=== PATIENT | female | born 1985 | race Caucasian/White ===

== ENCOUNTER 2017-10-06 08:30 | Inpatient (IN) | payer SELFPAY ==
[2017-10-06 10:08] LABS: Troponin I Less than 0.010 ng/mL (< 0.028)
[2017-10-06] MEDS ORDERED: Acetaminophen 325 MG TAB PO PRN (10:51)
[2017-10-06] MEDS ORDERED: Milk Of Magnesia 30 ML UDCUP PO PRN (10:51)
[2017-10-06] MEDS ORDERED: Chloraseptic Spray 180 ml Bottle PO PRN (10:51)
[2017-10-06] MEDS ORDERED: Loperamide HCl 2 MG CAP PO PRN (10:51)
[2017-10-06] MEDS ORDERED: Ondansetron ODT 4 MG TAB PO PRN (10:51)
[2017-10-06] MEDS ORDERED: Loratadine 10 MG TAB PO PRN (10:51)
[2017-10-06] MEDS ORDERED: Diabetic Tussin 200 MG/10 ML UDCUP PO PRN (10:51)
[2017-10-06] MEDS ORDERED: Eucerin (Mineral Oil/Petrolatum,White) 30 gm Jar TOP PRN (10:51)
[2017-10-06] MEDS ORDERED: Ondansetron HCl/PF 4 MG/2 ML Vial IVP PRN (10:51)
[2017-10-06] MEDS ORDERED: Zolpidem Tartrate 5 MG TAB PO PRN (10:51)
[2017-10-06] MEDS ORDERED: Artificial Tears 18 DROP/0.9 ML EA EYE PRN (10:51)
[2017-10-06] MEDS ORDERED: Senokot 8.6 MG TAB PO PRN (10:51)
[2017-10-06] MEDS ORDERED: Mag-Al 1200 mg/1200 mg/30 ML UDCUP PO PRN (10:51)
[2017-10-06] MEDS ORDERED: Sodium Chloride 0.65% Nasal 44 ML BOT EA NARE PRN (10:51)
--- NOTE | 2017-10-06 11:40 | HP ---
DATE OF ADMISSION: 10/06/2017 PRIMARY CARE PHYSICIAN: Lisa Salazar PA-C REASON FOR ADMISSION: Transfer from [facility] emergency room for bilateral pulmonary embolism. HISTORY OF PRESENT ILLNESS: A 32-year-old female who has chronic low back pain. She is taking oral contraceptive pills for contraception. She has a 2-week history of increasing shortness of breath, d ry cough, chest discomfort and pleuritic discomfort. Her chest pain is getting worse with deep breat dinesh. She gets dyspnea on exertion. She denies any palpitation, dizziness or syncope. She was give n recently antibiotic for upper respiratory infection without any clinical improvement. With these symptoms, she presented to [facility] where she had elevated D-dimer and that is why CT angio was done, which showed bilateral pulmonary embolism. The patient was given Lovenox 1 mg/kg and subsequently this patient was transferred to our hospital for further treatment. This patient denies any recent immobilization, travel. She denies any previous history of DVTs. She denies any pregnancies. She denies any fever or chills. She denies any hematochezia, melena. The patient reports that she has a history of stage II cervical cancer and a week ago, she had a cerv ical biopsy, but she does not know the result of that biopsy and based on that pathology report, her oncologist will decide treatment plan. REVIEW OF SYSTEMS: The following complete review of systems was negative, unless otherwise mentioned in the HPI or below: Constitutional: Weight loss or gain, ability to conduct usual activities. Sk in: Rash, itching. Eyes: Double vision, pain. ENT/Mouth: Nose bleeding, neck stiffness, pain, te nderness. Cardiovascular: Palpitations, dyspnea on exertion, orthopnea. Respiratory: Shortness of breath, wheezing, cough, hemoptysis, fever or night sweats. Gastrointestinal: Poor appetite, abdom inal pain, heartburn, nausea, vomiting, constipation or diarrhea. Genitourinary: Urgency, frequency , dysuria, nocturia. Musculoskeletal: Pain, swelling. Neurologic/Psychiatric: Anxiety, depression . Allergy/Immunologic: Skin rash, bleeding tendency. Please see my HPI for pertinent positive and negative. All other review of system reviewed and negat laura except as mentioned in the HPI. PAST MEDICAL HISTORY: Chronic low back pain, osteoarthritis, hypertension, history of cervical cance r. PAST SURGICAL HISTORY: The patient had x1 because of eclampsia. CORPORATE ACCOUNTANT HISTORY: G3, P3. PAST PSYCHIATRIC HISTORY: Anxiety and depression. SOCIAL HISTORY: The patient is . She drinks alcohol socially. She smokes about 1 pack per d ay. She is working as a computer technology trainer. She denies any other illicit drug abuse. FAMILY HISTORY: No family history of blood clot disorder. No family history of coronary artery dise ase, stroke or cancer. ALLERGIES: No known drug allergy. CURRENT HOME MEDICATIONS: Celexa 10 mg daily, Flexeril 10 mg t.i.d. p.r.n., ibuprofen 400 mg q.8 kim rly p.r.n., Soma 350 mg 3 times daily, Keflex 500 mg 4 times daily, which she finished, tramadol 50 m g q.8 hourly p.r.n., diclofenac 75 mg twice daily p.r.n., Tessalon 100 mg q.8 hourly p.r.n. for cough . EMERGENCY ROOM COURSE: At [facility], the patient was given morphine 2 mg, Lovenox 65 m g, albuterol inhalers, Solu-Medrol 125 mg, DuoNeb and aspirin 324 mg. PHYSICAL EXAMINATION: VITAL SIGNS: On arrival, blood pressure 134/81, pulse 102 and regular, respiratory rate 20, temperat ure 98.4, saturation 98% on room air, weight 65.7 kilograms. GENERAL: The patient is currently alert, awake, in no obvious acute distress. HEENT: Normocephalic, atraumatic. Eyes: Pupils round, reactive to light. Extraocular muscle intac t. ENT: Oropharynx within normal limits. Moist mucous membranes. No oral lesion, no pharyngeal erythe ma, no exudate. NECK: Supple, no JVD, no thyromegaly, no carotid bruit, no jugular venous distention. LUNGS: Clear to auscultation without any rhonchi or rales. CARDIAC: S1, S2 regular, tachycardia. No murmur, no gallop, no rub. ABDOMEN: Soft, bowel sounds present, nontender, nondistended. No organomegaly, no mass, no suprapub ic tenderness. BACK: Unremarkable. No CVA tenderness. EXTREMITIES: Upper extremities, passive movement of all joints are normal. Lower extremities, no ed jaky. Good distal pulsation. No calf tenderness. SKIN: No skin rash. HEMATOLOGICAL: No lymphadenopathy. PSYCHIATRIC: Normal affect. NEUROLOGIC: The patient is alert and oriented x3. Cranial nerves II-XII intact. Motor and sensatio n within normal limits. No focal neurological deficit. SIGNIFICANT LABORATORY DATA: Chest x-ray reported as normal without any acute process. CT angiograp hy showing bilateral subsegmental pulmonary embolism. CBC, WBC 15.3, hemoglobin 13.6, platelet 202,0 00 with left shift. D-dimer 3.75. BMP, sodium 138, potassium 4.0, chloride 103, carbon dioxide 24, anion gap 15, BUN 9, creatinine 0.71, glucose 125, calcium 9.4. LFT, AST 10, ALT 14, alkaline phosph atase 70, albumin 4.1. Cardiac enzymes negative. BNP less than 10. ASSESSMENT AND PLAN: 1. Bilateral pulmonary embolism. We will obtain ultrasound of bilateral lower extremity to rule out deep vein thrombosis. The patient is given Lovenox 1 mg/kg at [facility]. In our hosp ital, we will continue with Lovenox 1 mg/kg subcutaneously twice daily. We will send hypercoagulable workup. Most likely, the patient's use of hormonal contraceptive pills contributed to her pulmonar y embolism, but we will rule out any hypercoagulable disorder. We will continue with the Lovenox 1 m g/kg subcu twice daily while in hospital. I have discussed with the patient about advantage and disa dvantage of warfarin, Eliquis, Xarelto and the patient wanted to go with Eliquis/Xarelto. While in h ospital, we will continue Lovenox and upon discharge, we will continue Eliquis and Xarelto. The magdalena ent will need 6 months of therapy given first time pulmonary embolism. 2. Chronic low back pain. The patient's pain will be controlled with pain medication. The patient will be given Flexeril t.i.d., morphine 2 mg q.4 hourly p.r.n. as well as [place] on a p.r.n. basis. 3. Leukocytosis. We will repeat CBC tomorrow. 4. Anxiety and depression. We will continue Celexa as per home dosage. 5. Tobacco abuse disorder. Smoking cessation counseling given. Healthy lifestyle measures discusse d with the patient. 6. Deep venous thrombosis prophylaxis. The patient is already on full dose of Lovenox therapy. 7. Gastrointestinal prophylaxis. Pepcid 20 mg p.o. b.i.d. While in hospital, we will monitor H&H, platelets, creatinine and PT/INR every other day. Plan of care discussed with the patient and her at bedside in the emergency room in detail.
--- NOTE | 2017-10-06 12:25 | ULT ---
BILATERAL LOWER EXTREMITY VENOUS DOPPLER ULTRASOUND: HISTORY: Pulmonary embolism. TECHNIQUE: Heck scale ultrasound with color flow and spectral Doppler imaging of the deep venous system of the l ower extremities, bilaterally. FINDINGS: There is good flow, compression, and augmentation noted in the common femoral, femoral, deep femoral, popliteal, posterior tibial, and greater saphenous veins on either side. IMPRESSION: No evidence of deep vein thrombosis in either lower extremity. POS: [facility]
[2017-10-06] MEDS: HYDROcodone/Acetaminophen 10/325 mg Tablet PO PRN ×3 (12:32→21:05)
[2017-10-06] MEDS: Cyclobenzaprine 10 MG TAB PO PRN ×2 (12:33→21:07)
[2017-10-06 12:42] VITALS: BMI 23.7
[2017-10-06 15:33] LABS: Bilirubin Negative (Negative); Blood, Urine Moderate (Negative); Clarity CLEAR (Clear); Glucose, Urine (Dipstick) Negative (Negative); Leukocyte Negative (Negative); Nitrite Negative (Negative); Protein, Urine (Dipstick) Negative (Neg-Trace); Specific Gravity, Urine 1.011 (1.002-1.036); Urobilinogen 0.2 mg/dL (0.2-1.0); pH, Urine 6.5 (5.0-9.0)
[2017-10-06 15:35] LABS: Bacteria/HPF Rare-Few HPF (None Seen); Hyaline Casts/LPF 0-3 HYALINE CAST LPF (0-3 Hyaline); Squamous Epithelial 0-3 HPF (0-3)
[2017-10-06] MEDS: Famotidine 20 MG TAB PO SCH (19:40)
[2017-10-06] MEDS: Enoxaparin Sodium 80 MG/0.8 ML SYRINGE SC SCH (19:40)
[2017-10-07] MEDS: HYDROcodone/Acetaminophen 10/325 mg Tablet PO PRN ×5 (01:12→22:14)
[2017-10-07 06:38] LABS: Prothrombin Time 12.9 SEC (12.0-14.7)
[2017-10-07 06:38] LABS: ALT (SGPT) 10 U/L (8-55); AST (SGOT) 9 U/L (5-34); Albumin 4.1 g/dL (3.5-5.0); Alkaline Phosphatase 72 U/L (40-150); Anion Gap 14 mmol/L (10-20); BUN (Urea Nitrogen) 7 mg/dL (7.0-18.7); Bilirubin, Total 0.6 mg/dL (0.2-1.2); Calc. Creatinine Clearance 124 mL/min (70-130); Calcium 9.5 mg/dL (7.8-10.44); Carbon Dioxide 24 mmol/L (22-29); Chloride 99 mmol/L (98-107); Estimated GFR-MDRD Greater than 90; Globulin 3.7 g/dL (2.4-3.5); Glucose 120 mg/dL (70-105); Potassium 4.2 mmol/L (3.5-5.1); Protein, Total 7.8 g/dL (6.0-8.3); Sodium 133 mmol/L (136-145)
[2017-10-07 06:43] LABS: Hemoglobin 13.8 g/dL (12.0-16.0); Mean Corpuscular HGB CONC 32.5 g/dL (32.0-36.0); Mean Corpuscular Hemoglobin 32.1 pg (27.0-31.0); Mean Corpuscular Volume 98.7 fL (78.0-98.0); Platelet Count 227 thou/uL (130-400); RBC Distribution Width 11.8 % (11.5-14.5); White Blood Cell (WBC) Count 17.1 thou/uL (4.8-10.8)
[2017-10-07 07:01] LABS: D-Dimer Test 3.57 *mcg/mL (0.27-0.43)
[2017-10-07 07:14] LABS: Prothrombin Time 13.2 SEC (12.0-14.7)
[2017-10-07 08:41] LABS: Band 8 % (5-11); Lymphocytes 12 % (21-51); MDiff Complete? YES; Monocytes 7 % (0-10); Neutrophil 73 % (42-75); RBC Morphology Normal
[2017-10-07] MEDS ORDERED: Non-Formulary Item 1 EACH (Citalopram Hydrobromide [Celexa] 40 MG) PO SCH (09:00)
[2017-10-07] MEDS: Citalopram 20 MG TAB PO SCH (09:22)
[2017-10-07] MEDS: Famotidine 20 MG TAB PO SCH ×2 (09:22→20:17)
[2017-10-07] MEDS: Cyclobenzaprine 10 MG TAB PO PRN ×2 (09:22→20:17)
[2017-10-07] MEDS: Enoxaparin Sodium 80 MG/0.8 ML SYRINGE SC SCH ×2 (09:22→20:17)
--- NOTE | 2017-10-07 10:29 | PDOC.PN ---
- Subjective Encounter Start Date: 10/07/17 Encounter Start Time: 07:20 -: old records requested/rev Patient seen and examined. she feels better, No overnight events - Objective Resuscitation Status: Resuscitation Status FULL:Full Resuscitation MAR Reviewed: Yes Vital Signs & Weight: Vital Signs (12 hours) Temp Pulse Resp BP Pulse Ox 10/07/17 07:45 98.6 F 107 H 20 127/66 96 10/07/17 04:00 99.5 F 108 H 19 131/77 98 10/07/17 00:39 94 L 10/07/17 00:00 98.8 F 105 H 18 144/81 H 94 L Weight Weight 151 lb 5 oz I&O: 10/06/17 10/07/17 10/08/17 06:59 06:59 06:59 Intake Total 800 Balance 800 Result Diagrams: 10/07/17 06:07 10/07/17 06:07 Radiology Reviewed by me: Yes (us is negative for DVT) EKG Reviewed by me: Yes (nsr) Phys Exam - Physical Examination Constitutional: NAD HEENT: PERRLA, moist MMs, sclera anicteric Neck: no JVD, supple Respiratory: no wheezing, no rhonchi coarse sound at base Cardiovascular: RRR, no significant murmur, no rub tachycardia Gastrointestinal: soft, non-tender, no distention, positive bowel sounds Musculoskeletal: no edema, pulses present Neurological: non-focal, normal sensation, moves all 4 limbs Psychiatric: normal affect, A&O x 3 Skin: no rash, normal turgor Dx/Plan (1) Bilateral pulmonary embolism Code(s): I26.99 - OTHER PULMONARY EMBOLISM WITHOUT ACUTE COR PULMONALE Status : Acute (2) Ground glass opacity present on imaging of lung Code(s): R91.8 - OTHER NONSPECIFIC ABNORMAL FINDING OF LUNG FIELD Status: Acute (3) Leucocytosis Code(s): D72.829 - ELEVATED WHITE BLOOD CELL COUNT, UNSPECIFIED Status: Acute (4) Anxiety and depression Code(s): F41.9 - ANXIETY DISORDER, UNSPECIFIED; F32.9 - MAJOR DEPRESSIVE DISORDER, SINGLE EPISODE, UNSPECIFIED Status: Chronic (5) Chronic low back pain Code(s): M54.5 - LOW BACK PAIN; G89.29 - OTHER CHRONIC PAIN Status: Chronic - Plan cont current plan of care, continue antibiotics, respiratory therapy * continue lovenox * will consult pulmonary for ground glass change at base on CT chest * start empiric levaquin given high WBC count * repeat cbc tomorrow * eventual Elliquis on discharge * social work to help with Elliquis * discussed with * counseled to quit smoking. Review of Systems - Review of Systems Eyes: negative: Pain, Vision Change, Conjunctivae Inflammation, Eyelid Inflammation, Redness, Other ENT: negative: Ear Pain, Ear Discharge, Nose Pain, Nose Discharge, Nose Congestion, Mouth Pain, Mouth Swelling, Throat Pain, Throat Swelling, Other Respiratory: Cough, Shortness of Breath. negative: Dry, Hemoptysis, SOB with Excertion, Pleuritic Pain, Sputum, Wheezing Cardiovascular: negative: chest pain, palpitations, orthopnea, paroxysmal nocturnal dyspnea, edema, light headedness, other Gastrointestinal: negative: Nausea, Vomiting, Abdominal Pain, Diarrhea, Constipation, Melena, Hematochezia, Other Genitourinary: negative: Dysuria, Frequency, Incontinence, Hematuria, Retention , Other Musculoskeletal: negative: Neck Pain, Shoulder Pain, Arm Pain, Back Pain, Hand Pain, Leg Pain, Foot Pain, Other Skin: negative: Rash, Lesions, Rangel, Bruising, Other - Medications/Allergies Allergies/Adverse Reactions: Allergies Allergy/AdvReac Type Severity Reaction Status Date / Time No Known Allergies Allergy Verified 09/18/12 09:41 Medications: Current Medications Acetaminophen (Tylenol) 650 mg PO Q4H PRN PRN Reason: Headache/Fever or Pain Hydrocodone Bitart/Acetaminophen ([place] 10/325) 1 tab PO Q4H PRN PRN Reason: Moderate Pain (4-6) Last Admin: 10/07/17 06:28 Dose: 1 tab Al Hydroxide/Mg Hydroxide (Maalox) 30 ml PO Q6H PRN PRN Reason: Heartburn or Indigestion Albuterol/Ipratropium (Duoneb) 3 ml NEB [id number] PRN PRN Reason: SOB &/or Wheezing Last Admin: 10/06/17 21:47 Dose: 3 ml Artificial Tears (Tears Naturale) 0 drop EA EYE PRN PRN PRN Reason: Dry Eyes Citalopram Hydrobromide (Celexa) 40 mg PO DAILY [facility] Last Admin: 10/07/17 09:22 Dose: 40 mg Cyclobenzaprine HCl (Flexeril) 10 mg PO TID PRN PRN Reason: Muscle Spasm Last Admin: 10/07/17 09:22 Dose: 10 mg Enoxaparin Sodium (Lovenox) 70 mg SC 0900,2100 [facility] Last Admin: 10/07/17 09:22 Dose: 70 mg Famotidine (Pepcid) 20 mg PO BID [facility] Last Admin: 10/07/17 09:22 Dose: 20 mg Guaifenesin (Robitussin Sf) 200 mg PO Q4H PRN PRN Reason: Cough Levofloxacin 500 mg/ Device 100 mls @ 100 mls/hr IVPB 0900 [facility] Last Admin: 10/07/17 09:56 Dose: 100 mls Loperamide HCl (Imodium) 2 mg PO PRN PRN PRN Reason: Diarrhea/Loose Stools Loratadine (Claritin) 10 mg PO DAILYPRN PRN PRN Reason: Sinus Symptoms Magnesium Hydroxide (Milk Of Magnesium) 30 ml PO DAILYPRN PRN PRN Reason: Constipation Mineral Oil/White Petrolatum (Eucerin Cream) 0 gm TOP BIDPRN PRN PRN Reason: Dry Skin Morphine Sulfate (Morphine) 2 mg SLOW IVP Q4H PRN PRN Reason: Severe Pain (7-10) Last Admin: 10/07/17 09:44 Dose: 2 mg Ondansetron HCl (Zofran Odt) 4 mg PO Q6H PRN PRN Reason: Nausea/Vomiting Ondansetron HCl (Zofran) 4 mg IVP Q6H PRN PRN Reason: Nausea/Vomiting Phenol (Chloraseptic [place] 180 Ml Bot) 0 ml PO PRN PRN PRN Reason: Sore Throat Senna (Senokot) 2 tab PO HSPRN PRN PRN Reason: Constipation Sodium Chloride ([place] Nasal [place] 0.65%) 0 ml EA NARE QIDPRN PRN PRN Reason: Nasal Congestion Zolpidem Tartrate (Ambien) 5 mg PO HSPRN PRN PRN Reason: Insomnia
[2017-10-07 12:35] LABS: Factor VIII Test 347.6 % ACTIVE (56-157)
--- NOTE | 2017-10-07 12:57 | CON ---
DATE OF CONSULTATION: 10/07/2017 HISTORY OF PRESENT ILLNESS: She is a 32-year-old female, 65 kg, who presented to the ER from [facility] with difficulty breathing and a CAT scan showing bilateral pulmonary emboli. She had ultras ound of the leg done which shows no evidence of any DVT. She is having difficulty breathing for the last 2 weeks. She has smoked a pack a day for almost 13 to 14 years. She was seen in the ER at [facility] about 2 weeks ago for back and neck pain. Apparently she t ells me that not much was done. She recently had some kind of cervical biopsy done by Dr. Mccain, res ults of which are pending. She had previous history of walking pneumonia, but no history of TB or as thma. PAST MEDICAL HISTORY: Otherwise, pertinent mainly for depression, chronic pain. CHRONIC MEDICATIONS: Includes Celexa 40, meclizine 25, Flexeril 10, Motrin, Tessalon Per[place], Soma, U ltram. PRIMARY CARE DOCTOR: Her primary care doctor is a nurse practitioner out of [place]. SOCIAL HISTORY: Alcohol minimal. Tobacco as noted. Drugs; none. She apparently trains horses. PAST SURGICAL HISTORY: Previous surgeries including three C-sections in the past. A recent cervical biopsy. REVIEW OF SYSTEMS: Otherwise, 10-point negative. PHYSICAL EXAMINATION: VITAL SIGNS: Blood pressure is 160/77, 98% room air sats, respirations 20, pulse 102, temperature 99 . CHEST: Chest revealed decreased breath sounds without any wheezing. CARDIAC: Normal S1-S2. No gallops. ABDOMEN: Soft. EXTREMITIES: No edema. LABORATORY DATA: White count is 17,000, H&H 13 and 42, platelet count is normal. D-dimer was elevat ed. Electrolytes are normal. Blood cultures were done which are negative. BNP was normal. CAT scan of the chest did show rather impressive bilateral pulmonary emboli with some ground glass op acification. IMPRESSION: 1. Bilateral pulmonary emboli, no evidence of deep venous thrombosis. 2. Recent biopsy of the cervix done which results are pending. 3. Depression. 4. Chronic back pain. 5. L5-S1 disk disease on a previous CT spine. PLAN: I agree with Lovenox. I will switch her over to Eliquis after ____ when she is less symptomat ic. Switch her over to oral antibiotics. PT and supportive care. I will await results of the path. Await results of the hypercoagulable profile. This is a consultation note, 70 minutes, 50% spent in direct patient care.
[2017-10-08] MEDS: HYDROcodone/Acetaminophen 10/325 mg Tablet PO PRN ×5 (02:13→20:24)
[2017-10-08 06:05] LABS: Hemoglobin 12.4 g/dL (12.0-16.0); Platelet Count 213 thou/uL (130-400)
[2017-10-08 06:07] LABS: INR-International Normal Ratio 1.1; Prothrombin Time 14.1 SEC (12.0-14.7)
[2017-10-08 06:21] LABS: Calc. Creatinine Clearance 132 mL/min (70-130); Estimated GFR-MDRD Greater than 90
--- NOTE | 2017-10-08 09:36 | PRG ---
DATE OF SERVICE: 10/08/2017 This morning she is awake, alert, responsive. Denies any difficulty breathing. In fact, she says sh e is feeling better. She has got a slight cough. OBJECTIVE: VITAL SIGNS: Blood pressure is 131/65, sats 96, temperature 100.2. CHEST: Decreased breath sounds, no wheezing. CARDIAC: Normal S1, S2, no gallops. ABDOMEN: Soft, no masses. Electrolytes are normal. IMPRESSION: Bilateral pulmonary emboli, possibly superimposed pneumonia. PLAN: Continue Lovenox for another 24 hours. May switch her over to Eliquis tomorrow. Baseline yohana st x-ray is being ordered. Continue PT and supportive care.
[2017-10-08 10:11] LABS: White Blood Cell (WBC) Count 17.3 thou/uL (4.8-10.8)
[2017-10-08] MEDS: Citalopram 20 MG TAB PO SCH (10:26)
[2017-10-08] MEDS: Famotidine 20 MG TAB PO SCH ×2 (10:26→20:24)
[2017-10-08] MEDS: Enoxaparin Sodium 80 MG/0.8 ML SYRINGE SC SCH ×2 (10:36→20:23)
--- NOTE | 2017-10-08 10:39 | RAD ---
FRONTAL AND LATERAL IMAGING OF THE CHEST: 10/08/2017 HISTORY: Pneumonia. COMPARISON: 01/16/2016 FINDINGS: There is dense opacity of the inferior half of the right hemithorax, suggesting consolidation/collaps e of the right middle and right lower lobe, with associated with pleural effusion. Aeration within t he right hemithorax has worsened markedly when compared to a chest CT performed on 10/08/2017. There is patchy increased linear density in the left lung base, extending into the left costophrenic angle , worsened as well. IMPRESSION: Significant interval worsening in bibasilar opacity, right greater than left. This suggests aspirati on and/or multifocal infectious pneumonitis. POS: [facility]
--- NOTE | 2017-10-08 10:51 | PDOC.PN ---
- Subjective Encounter Start Date: 10/08/17 Encounter Start Time: 07:15 pt has cough with sputum, less dyspnea, has fever - Objective Resuscitation Status: Resuscitation Status FULL:Full Resuscitation MAR Reviewed: Yes Vital Signs & Weight: Vital Signs (12 hours) Temp Pulse Resp BP Pulse Ox 10/08/17 08:01 110 H 14 10/08/17 08:00 100.2 F H 112 H 20 131/65 96 10/08/17 04:00 99.6 F 117 H 18 126/71 95 10/08/17 03:15 97 10/08/17 00:00 98.5 F 108 H 18 126/63 95 Weight Weight 151 lb 5 oz I&O: 10/07/17 10/08/17 10/09/17 06:59 06:59 06:59 Intake Total 800 340 Balance 800 340 Result Diagrams: 10/08/17 05:34 10/08/17 05:34 Radiology Reviewed by me: Yes (chest xray) EKG Reviewed by me: Yes (sinus tachycardia) Phys Exam - Physical Examination Constitutional: NAD HEENT: PERRLA, moist MMs, sclera anicteric Neck: no JVD, supple bibasilar coarse rales Cardiovascular: RRR, no significant murmur, no rub tachycardia Gastrointestinal: soft, non-tender, no distention, positive bowel sounds Musculoskeletal: no edema, pulses present Neurological: non-focal, normal sensation, moves all 4 limbs Psychiatric: normal affect, A&O x 3 Skin: no rash, normal turgor Dx/Plan (1) Bilateral pulmonary embolism Code(s): I26.99 - OTHER PULMONARY EMBOLISM WITHOUT ACUTE COR PULMONALE Status : Acute (2) Ground glass opacity present on imaging of lung Code(s): R91.8 - OTHER NONSPECIFIC ABNORMAL FINDING OF LUNG FIELD Status: Acute (3) Leucocytosis Code(s): D72.829 - ELEVATED WHITE BLOOD CELL COUNT, UNSPECIFIED Status: Acute (4) Anxiety and depression Code(s): F41.9 - ANXIETY DISORDER, UNSPECIFIED; F32.9 - MAJOR DEPRESSIVE DISORDER, SINGLE EPISODE, UNSPECIFIED Status: Chronic (5) Chronic low back pain Code(s): M54.5 - LOW BACK PAIN; G89.29 - OTHER CHRONIC PAIN Status: Chronic (6) Community acquired bacterial pneumonia Code(s): J15.9 - UNSPECIFIED BACTERIAL PNEUMONIA Status: Suspected - Plan cont current plan of care, plan discussed w/ family, continue antibiotics, respiratory therapy * as chest xray still shows worsening and now with fever and tachycardia, as well as high wbc count, pneumonia is likely, will add rocephin * continue levaquin IV * add mucinex * Duoneb as needed * echo pending result. * continue lovenox * pulmonary recommendation appreciated * medication reviewed as below * symptomatic treatment Review of Systems - Review of Systems Eyes: negative: Pain, Vision Change, Conjunctivae Inflammation, Eyelid Inflammation, Redness, Other ENT: negative: Ear Pain, Ear Discharge, Nose Pain, Nose Discharge, Nose Congestion, Mouth Pain, Mouth Swelling, Throat Pain, Throat Swelling, Other Respiratory: Cough, Shortness of Breath, Sputum. negative: Dry, Hemoptysis, SOB with Excertion, Pleuritic Pain, Wheezing Cardiovascular: negative: chest pain, palpitations, orthopnea, paroxysmal nocturnal dyspnea, edema, light headedness, other Gastrointestinal: negative: Nausea, Vomiting, Abdominal Pain, Diarrhea, Constipation, Melena, Hematochezia, Other Genitourinary: negative: Dysuria, Frequency, Incontinence, Hematuria, Retention , Other Musculoskeletal: negative: Neck Pain, Shoulder Pain, Arm Pain, Back Pain, Hand Pain, Leg Pain, Foot Pain, Other Skin: negative: Rash, Lesions, Rangel, Bruising, Other - Medications/Allergies Allergies/Adverse Reactions: Allergies Allergy/AdvReac Type Severity Reaction Status Date / Time No Known Allergies Allergy Verified 09/18/12 09:41 Medications: Current Medications Acetaminophen (Tylenol) 650 mg PO Q4H PRN PRN Reason: Headache/Fever or Pain Hydrocodone Bitart/Acetaminophen ([place] 10/325) 1 tab PO Q4H PRN PRN Reason: Moderate Pain (4-6) Last Admin: 10/08/17 10:34 Dose: 1 tab Al Hydroxide/Mg Hydroxide (Maalox) 30 ml PO Q6H PRN PRN Reason: Heartburn or Indigestion Albuterol/Ipratropium (Duoneb) 3 ml NEB [id number] PRN PRN Reason: SOB &/or Wheezing Last Admin: 10/08/17 08:01 Dose: 3 ml Artificial Tears (Tears Naturale) 0 drop EA EYE PRN PRN PRN Reason: Dry Eyes Citalopram Hydrobromide (Celexa) 40 mg PO DAILY [facility] Last Admin: 10/08/17 10:26 Dose: 40 mg Cyclobenzaprine HCl (Flexeril) 10 mg PO TID PRN PRN Reason: Muscle Spasm Last Admin: 10/07/17 20:17 Dose: 10 mg Enoxaparin Sodium (Lovenox) 70 mg SC 0900,2100 [facility] Last Admin: 10/08/17 10:36 Dose: 70 mg Famotidine (Pepcid) 20 mg PO BID [facility] Last Admin: 10/08/17 10:26 Dose: 20 mg Guaifenesin (Robitussin Sf) 200 mg PO Q4H PRN PRN Reason: Cough Levofloxacin 500 mg/ Device 100 mls @ 100 mls/hr IVPB 0900 [facility] Last Admin: 10/08/17 10:26 Dose: 100 mls Loperamide HCl (Imodium) 2 mg PO PRN PRN PRN Reason: Diarrhea/Loose Stools Loratadine (Claritin) 10 mg PO DAILYPRN PRN PRN Reason: Sinus Symptoms Magnesium Hydroxide (Milk Of Magnesium) 30 ml PO DAILYPRN PRN PRN Reason: Constipation Mineral Oil/White Petrolatum (Eucerin Cream) 0 gm TOP BIDPRN PRN PRN Reason: Dry Skin Morphine Sulfate (Morphine) 2 mg SLOW IVP Q4H PRN PRN Reason: Severe Pain (7-10) Last Admin: 10/07/17 23:42 Dose: 2 mg Ondansetron HCl (Zofran Odt) 4 mg PO Q6H PRN PRN Reason: Nausea/Vomiting Ondansetron HCl (Zofran) 4 mg IVP Q6H PRN PRN Reason: Nausea/Vomiting Phenol (Chloraseptic [place] 180 Ml Bot) 0 ml PO PRN PRN PRN Reason: Sore Throat Senna (Senokot) 2 tab PO HSPRN PRN PRN Reason: Constipation Sodium Chloride ([place] Nasal [place] 0.65%) 0 ml EA NARE QIDPRN PRN PRN Reason: Nasal Congestion Zolpidem Tartrate (Ambien) 5 mg PO HSPRN PRN PRN Reason: Insomnia
[2017-10-08] MEDS ORDERED: cefTRIAXone\\ROCEPHIN 1 GM in Sodium Chloride 0.9% 100 ML IVPB SCH (11:00)
[2017-10-08] MEDS ORDERED: predniSONE 20 MG TAB PO SCH (13:00)
[2017-10-08] MEDS: Cyclobenzaprine 10 MG TAB PO PRN ×2 (13:33→20:24)
[2017-10-08 15:55] LABS: Cardiolipin IgA Ab 1.7 APL-U/mL (<14 Negative); Cardiolipin IgM Ab 1.6 MPL-U/mL (<10 Negative); EliA APS New Method **** NEW METHOD ****
[2017-10-08] MEDS: guaiFENesin ER 600 MG TAB PO SCH (20:24)
[2017-10-08] MEDS: Cefepime 1 GM in Sodium Chloride 0.9% 100 ML IVPB SCH (20:25)
[2017-10-09] MEDS: HYDROcodone/Acetaminophen 10/325 mg Tablet PO PRN ×4 (02:16→21:04)
[2017-10-09 06:00] LABS: INR-International Normal Ratio 1.1; Prothrombin Time 14.2 SEC (12.0-14.7)
[2017-10-09] MEDS ORDERED: predniSONE 20 MG TAB PO SCH (08:00)
[2017-10-09] MEDS: Citalopram 20 MG TAB PO SCH (09:33)
[2017-10-09] MEDS: Enoxaparin Sodium 80 MG/0.8 ML SYRINGE SC SCH ×2 (09:33→21:04)
[2017-10-09] MEDS: guaiFENesin ER 600 MG TAB PO SCH ×2 (09:34→21:05)
[2017-10-09] MEDS: Famotidine 20 MG TAB PO SCH ×2 (09:34→21:04)
[2017-10-09] MEDS: predniSONE 20 MG TAB PO SCH (09:35)
--- NOTE | 2017-10-09 10:24 | PDOC.PN ---
- Subjective Encounter Start Date: 10/09/17 Encounter Start Time: 10:10 pt now able to take deep breath, she has cough, no fever, gets dyspnea pt feels more shortness of breath in right lateral position. - Objective Resuscitation Status: Resuscitation Status FULL:Full Resuscitation MAR Reviewed: Yes Vital Signs & Weight: Vital Signs (12 hours) Temp Pulse Resp BP Pulse Ox 10/09/17 08:40 121 H 20 122/66 98 10/09/17 04:00 99.2 F 99 18 105/51 L 95 10/09/17 00:00 99.4 F 101 H 18 118/66 90 L Weight Weight 151 lb 5 oz I&O: 10/08/17 10/09/17 10/10/17 06:59 06:59 06:59 Intake Total 340 60 Balance 340 60 Result Diagrams: 10/08/17 05:34 10/08/17 05:34 Radiology Reviewed by me: Yes (chest xray reviewed) EKG Reviewed by me: Yes (nsr) Phys Exam - Physical Examination Constitutional: NAD HEENT: PERRLA, moist MMs, sclera anicteric Neck: no JVD, supple Respiratory: no wheezing, no rhonchi bibasilar rales, air entry reduced on right side Cardiovascular: RRR, no significant murmur, no rub Gastrointestinal: soft, non-tender, no distention, positive bowel sounds Musculoskeletal: no edema, pulses present Neurological: non-focal, normal sensation, moves all 4 limbs Psychiatric: normal affect, A&O x 3 Skin: no rash, normal turgor Dx/Plan (1) Bilateral pulmonary embolism Code(s): I26.99 - OTHER PULMONARY EMBOLISM WITHOUT ACUTE COR PULMONALE Status : Acute (2) Ground glass opacity present on imaging of lung Code(s): R91.8 - OTHER NONSPECIFIC ABNORMAL FINDING OF LUNG FIELD Status: Acute (3) Leucocytosis Code(s): D72.829 - ELEVATED WHITE BLOOD CELL COUNT, UNSPECIFIED Status: Acute (4) Anxiety and depression Code(s): F41.9 - ANXIETY DISORDER, UNSPECIFIED; F32.9 - MAJOR DEPRESSIVE DISORDER, SINGLE EPISODE, UNSPECIFIED Status: Chronic (5) Chronic low back pain Code(s): M54.5 - LOW BACK PAIN; G89.29 - OTHER CHRONIC PAIN Status: Chronic (6) Community acquired bacterial pneumonia Code(s): J15.9 - UNSPECIFIED BACTERIAL PNEUMONIA Status: Suspected - Plan cont current plan of care, plan discussed w/ family, continue antibiotics, respiratory therapy * pt seems like has right pleural effusion along with pneumonia * i have explained her need of chest xray in right lateral position * continue cefepime and levaquin * continue lovenox * medication reviewed as below * symptomatic treatment. * discussed with family Review of Systems - Review of Systems Constitutional: negative: fever, chills, sweats, weakness, malaise, other Eyes: negative: Pain, Vision Change, Conjunctivae Inflammation, Eyelid Inflammation, Redness, Other ENT: negative: Ear Pain, Ear Discharge, Nose Pain, Nose Discharge, Nose Congestion, Mouth Pain, Mouth Swelling, Throat Pain, Throat Swelling, Other Respiratory: Cough, Shortness of Breath, Pleuritic Pain. negative: Dry, Hemoptysis, SOB with Excertion, Sputum, Wheezing Cardiovascular: negative: chest pain, palpitations, orthopnea, paroxysmal nocturnal dyspnea, edema, light headedness, other Gastrointestinal: negative: Nausea, Vomiting, Abdominal Pain, Diarrhea, Constipation, Melena, Hematochezia, Other Genitourinary: negative: Dysuria, Frequency, Incontinence, Hematuria, Retention , Other Musculoskeletal: negative: Neck Pain, Shoulder Pain, Arm Pain, Back Pain, Hand Pain, Leg Pain, Foot Pain, Other Skin: negative: Rash, Lesions, Rangel, Bruising, Other - Medications/Allergies Allergies/Adverse Reactions: Allergies Allergy/AdvReac Type Severity Reaction Status Date / Time No Known Allergies Allergy Verified 09/18/12 09:41 Medications: Current Medications Acetaminophen (Tylenol) 650 mg PO Q4H PRN PRN Reason: Headache/Fever or Pain Hydrocodone Bitart/Acetaminophen ([place] 10/325) 1 tab PO Q4H PRN PRN Reason: Moderate Pain (4-6) Last Admin: 10/09/17 09:35 Dose: 1 tab Al Hydroxide/Mg Hydroxide (Maalox) 30 ml PO Q6H PRN PRN Reason: Heartburn or Indigestion Albuterol/Ipratropium (Duoneb) 3 ml NEB [id number] PRN PRN Reason: SOB &/or Wheezing Last Admin: 10/08/17 08:01 Dose: 3 ml Artificial Tears (Tears Naturale) 0 drop EA EYE PRN PRN PRN Reason: Dry Eyes Citalopram Hydrobromide (Celexa) 40 mg PO DAILY [facility] Last Admin: 10/09/17 09:33 Dose: 40 mg Cyclobenzaprine HCl (Flexeril) 10 mg PO TID PRN PRN Reason: Muscle Spasm Last Admin: 10/08/17 20:24 Dose: 10 mg Enoxaparin Sodium (Lovenox) 70 mg SC 0900,2100 [facility] Last Admin: 10/09/17 09:33 Dose: 70 mg Famotidine (Pepcid) 20 mg PO BID [facility] Last Admin: 10/09/17 09:34 Dose: 20 mg Guaifenesin (Robitussin Sf) 200 mg PO Q4H PRN PRN Reason: Cough Guaifenesin (Mucinex) 600 mg PO Q12HR [facility] Last Admin: 10/09/17 09:34 Dose: 600 mg Levofloxacin 500 mg/ Device 100 mls @ 100 mls/hr IVPB 0900 [facility] Last Admin: 10/08/17 10:26 Dose: 50 mls Cefepime HCl 1 gm/ Sodium (Chloride) 100 mls @ 200 mls/hr IVPB Q12HR [facility] Last Admin: 10/08/17 20:25 Dose: 100 mls Loperamide HCl (Imodium) 2 mg PO PRN PRN PRN Reason: Diarrhea/Loose Stools Loratadine (Claritin) 10 mg PO DAILYPRN PRN PRN Reason: Sinus Symptoms Magnesium Hydroxide (Milk Of Magnesium) 30 ml PO DAILYPRN PRN PRN Reason: Constipation Mineral Oil/White Petrolatum (Eucerin Cream) 0 gm TOP BIDPRN PRN PRN Reason: Dry Skin Morphine Sulfate (Morphine) 2 mg SLOW IVP Q4H PRN PRN Reason: Severe Pain (7-10) Last Admin: 10/08/17 13:37 Dose: 2 mg Ondansetron HCl (Zofran Odt) 4 mg PO Q6H PRN PRN Reason: Nausea/Vomiting Ondansetron HCl (Zofran) 4 mg IVP Q6H PRN PRN Reason: Nausea/Vomiting Phenol (Chloraseptic [place] 180 Ml Bot) 0 ml PO PRN PRN PRN Reason: Sore Throat Prednisone (Prednisone) 20 mg PO QA-[facility] Last Admin: 10/09/17 09:35 Dose: 20 mg Senna (Senokot) 2 tab PO HSPRN PRN PRN Reason: Constipation Sodium Chloride ([place] Nasal [place] 0.65%) 0 ml EA NARE QIDPRN PRN PRN Reason: Nasal Congestion Sodium Chloride (Flush - Normal Saline) 10 ml IVF Q12HR [facility] Last Admin: 10/09/17 09:32 Dose: 10 ml Sodium Chloride (Flush - Normal Saline) 10 ml IVF PRN PRN PRN Reason: Saline Flush Zolpidem Tartrate (Ambien) 5 mg PO HSPRN PRN PRN Reason: Insomnia
--- NOTE | 2017-10-09 10:40 | PRG ---
DATE OF SERVICE: 10/09/2017 A 32-year-old female. I had ordered a right lateral decubitus chest x-ray for this morning. None wa s done. When I spoke to the X-ray proof technician they said the orders were not put incorrectly. I asked them to check the order slip which clearly stated that she needed a decubitus x-ray. The patient's x-ray showed a large right-sided pleural effusion on a PA and lateral view. She was se nt down for a right lateral decubitus chest x-ray. When she arrived in the x-ray the second time thi s morning she refused to get the x-rays, stating that she was short of breath. I therefore went to her room to ask her why she refused the chest x-ray. She tells me that she could not breathe lying down flat. I said it would be important to get an x-ray to see whether she has go t fluid to tap it. She told me that I was not listening to her that she was short of breath, that I was fired, she did not want to see me again. These findings were discussed with the patient's nurse. I am going to call the administration that t he patient will no longer be seen by Pulmonary in this hospital.
--- NOTE | 2017-10-09 10:42 | RAD ---
CHEST TWO VIEWS: History: Pleural fluid. Follow up. Comparison: 10-08-17 FINDINGS: Cardiac silhouette remains predominately obscured by opacity at the right base having an appearance o f pleural fluid and consolidation or atelectasis. It is similar to the previous exam. The left lung b ase is now improved with minimal residual atelectasis. Pulmonary vasculature upper limits of normal. No evidence of pneumothorax. IMPRESSION: 1. Stable radiographic appear of right pleural fluid and basilar infiltrate. 2. Improved aeration left lung base. POS: [facility]
[2017-10-09 11:12] LABS: HEX PHOS LA Tube 1 62.4 SEC; HEX PHOS LA Tube 2 55.6 SEC; Hexagonal Phospholipid Neut 6.8 SEC (0-8.0)
[2017-10-09 13:04] LABS: Protein C Activity 126 % (78-152)
--- NOTE | 2017-10-09 13:07 | RAD ---
CHEST ONE VIEW RIGHT LATERAL DECUBITUS: History: Right pleural fluid. FINDINGS/IMPRESSION: Moderate amount of free fluid layers within the dependent portion of the right hemithorax on this exa m. Other findings are stable. POS: [facility]
[2017-10-09] MEDS: Cefepime 1 GM in Sodium Chloride 0.9% 100 ML IVPB SCH ×2 (14:39→21:05)
--- NOTE | 2017-10-09 16:06 | PDOC.EVN ---
Event Note - Event Note Event Note: Late entry: This morning Dr Anaya requested right lateral position chest xray but at that time pt refused to go for that as she was not able to lie on right lateral position due to increased dyspnea in that position. Some reason Pt did not wanted to see Dr Anaya further. After that I discussed with pt and explained rationale of chest xray in that position, I reassured her and gave her solumedrol before chest xray and she did agree with going for chest xray in right lateral position. Pt did clarify to me that she is willing to take opinion from another pulmonogist from the same group. Luckily pt tolerated chest xray and it was done. I have reviewed chest xray and it shows right side moderate amount of fluid and suspected for either parapneumonic effusion, or reactionary to PE. But etiology is unclear, echo result is still pending. I thinks she still needs pulmonary care to decide if she needs diagnostic thoracentesis or not, to rule out parapneumonic efusion, although she has some improvement on left side finding, she has not shown great clinical response with antibiotics so far.
[2017-10-09] MEDS: Cyclobenzaprine 10 MG TAB PO PRN (21:05)
[2017-10-10] MEDS: Cefepime 1 GM in Sodium Chloride 0.9% 100 ML IVPB SCH (08:31)
[2017-10-10] MEDS: Enoxaparin Sodium 80 MG/0.8 ML SYRINGE SC SCH (08:32)
[2017-10-10] MEDS: Citalopram 20 MG TAB PO SCH (08:34)
[2017-10-10] MEDS: guaiFENesin ER 600 MG TAB PO SCH (08:34)
[2017-10-10] MEDS: predniSONE 20 MG TAB PO SCH (08:34)
[2017-10-10] MEDS: Famotidine 20 MG TAB PO SCH (08:34)
[2017-10-10 08:44] LABS: INR-International Normal Ratio 1.1; Prothrombin Time 14.3 SEC (12.0-14.7)
[2017-10-10 08:54] LABS: Hemoglobin 11.4 g/dL (12.0-16.0); Mean Corpuscular HGB CONC 34.7 g/dL (32.0-36.0); Mean Corpuscular Hemoglobin 33.7 pg (27.0-31.0); Mean Corpuscular Volume 97.2 fL (78.0-98.0); Mean Platelet Volume 7.7 fL (7.4-10.4); Platelet Count 317 thou/uL (130-400); RBC Distribution Width 11.6 % (11.5-14.5); Red Blood Cell (RBC) Count 3.38 mill/uL (4.20-5.40); White Blood Cell (WBC) Count 17.9 thou/uL (4.8-10.8)
[2017-10-10 08:57] LABS: Calc. Creatinine Clearance 142 mL/min (70-130); Estimated GFR-MDRD Greater than 90
[2017-10-10 09:11] LABS: Band 17 % (5-11); Lymphocytes 6 % (21-51); MDiff Complete? YES; Monocytes 1 % (0-10); Neutrophil 76 % (42-75); RBC Morphology Normal
--- NOTE | 2017-10-10 14:40 | PDOC.PN ---
- Subjective Encounter Start Date: 10/10/17 Encounter Start Time: 09:40 Pt seen for followup re: bilateral pulmonary embolism. Feels better. No cough. No chest pain. - Objective Resuscitation Status: Resuscitation Status FULL:Full Resuscitation MAR Reviewed: Yes Vital Signs & Weight: Vital Signs (12 hours) Temp Pulse Resp BP Pulse Ox 10/10/17 11:47 98.4 F 97 16 138/68 92 L 10/10/17 08:00 98.4 F 90 16 10/10/17 07:50 98.4 F 90 16 107/59 L 94 L 10/10/17 03:50 98 F 87 16 114/68 92 L Weight Weight 151 lb 5 oz I&O: 10/09/17 10/10/17 10/11/17 06:59 06:59 06:59 Intake Total 60 150 1020 Balance 60 150 1020 Result Diagrams: 10/10/17 08:28 10/10/17 08:28 EKG Reviewed by me: Yes (Tele: NSR) Phys Exam - Physical Examination Constitutional: NAD HEENT: moist MMs Neck: supple Diminished air entry R base Cardiovascular: RRR Gastrointestinal: soft Neurological: moves all 4 limbs Psychiatric: normal affect Dx/Plan (1) Bilateral pulmonary embolism Code(s): I26.99 - OTHER PULMONARY EMBOLISM WITHOUT ACUTE COR PULMONALE Status : Acute Comment: continue Lovenox, switch to apixaban or rivaroxaban at the time of discharge (2) Leucocytosis Code(s): D72.829 - ELEVATED WHITE BLOOD CELL COUNT, UNSPECIFIED Status: Acute Comment: infection vs. steroid use (3) Community acquired bacterial pneumonia Code(s): J15.9 - UNSPECIFIED BACTERIAL PNEUMONIA Status: Suspected Comment: continue IV cefepime and vancomycin. - Plan * . Review of Systems - Review of Systems Respiratory: negative: Cough, Shortness of Breath, SOB with Excertion, Pleuritic Pain, Wheezing Cardiovascular: negative: chest pain, palpitations, orthopnea, paroxysmal nocturnal dyspnea, edema, light headedness - Medications/Allergies Allergies/Adverse Reactions: Allergies Allergy/AdvReac Type Severity Reaction Status Date / Time No Known Allergies Allergy Verified 09/18/12 09:41 Medications: Current Medications Acetaminophen (Tylenol) 650 mg PO Q4H PRN PRN Reason: Headache/Fever or Pain Hydrocodone Bitart/Acetaminophen ([place] 10/325) 1 tab PO Q4H PRN PRN Reason: Moderate Pain (4-6) Last Admin: 10/09/17 21:04 Dose: 1 tab Al Hydroxide/Mg Hydroxide (Maalox) 30 ml PO Q6H PRN PRN Reason: Heartburn or Indigestion Albuterol/Ipratropium (Duoneb) 3 ml NEB [id number] PRN PRN Reason: SOB &/or Wheezing Last Admin: 10/08/17 08:01 Dose: 3 ml Artificial Tears (Tears Naturale) 0 drop EA EYE PRN PRN PRN Reason: Dry Eyes Citalopram Hydrobromide (Celexa) 40 mg PO DAILY [facility] Last Admin: 10/10/17 08:34 Dose: 40 mg Cyclobenzaprine HCl (Flexeril) 10 mg PO TID PRN PRN Reason: Muscle Spasm Last Admin: 10/09/17 21:05 Dose: 10 mg Enoxaparin Sodium (Lovenox) 70 mg SC 0900,2100 [facility] Last Admin: 10/10/17 08:32 Dose: 70 mg Famotidine (Pepcid) 20 mg PO BID [facility] Last Admin: 10/10/17 08:34 Dose: 20 mg Guaifenesin (Robitussin Sf) 200 mg PO Q4H PRN PRN Reason: Cough Guaifenesin (Mucinex) 600 mg PO Q12HR [facility] Last Admin: 10/10/17 08:34 Dose: 600 mg Levofloxacin 500 mg/ Device 100 mls @ 100 mls/hr IVPB 0900 [facility] Last Admin: 10/10/17 08:32 Dose: 100 mls Cefepime HCl 1 gm/ Sodium (Chloride) 100 mls @ 200 mls/hr IVPB Q12HR [facility] Last Admin: 10/10/17 08:31 Dose: 100 mls Loperamide HCl (Imodium) 2 mg PO PRN PRN PRN Reason: Diarrhea/Loose Stools Loratadine (Claritin) 10 mg PO DAILYPRN PRN PRN Reason: Sinus Symptoms Magnesium Hydroxide (Milk Of Magnesium) 30 ml PO DAILYPRN PRN PRN Reason: Constipation Mineral Oil/White Petrolatum (Eucerin Cream) 0 gm TOP BIDPRN PRN PRN Reason: Dry Skin Morphine Sulfate (Morphine) 2 mg SLOW IVP Q4H PRN PRN Reason: Severe Pain (7-10) Last Admin: 10/08/17 13:37 Dose: 2 mg Ondansetron HCl (Zofran Odt) 4 mg PO Q6H PRN PRN Reason: Nausea/Vomiting Ondansetron HCl (Zofran) 4 mg IVP Q6H PRN PRN Reason: Nausea/Vomiting Phenol (Chloraseptic [place] 180 Ml Bot) 0 ml PO PRN PRN PRN Reason: Sore Throat Prednisone (Prednisone) 20 mg PO QA-[facility] Last Admin: 10/10/17 08:34 Dose: 20 mg Senna (Senokot) 2 tab PO HSPRN PRN PRN Reason: Constipation Sodium Chloride ([place] Nasal [place] 0.65%) 0 ml EA NARE QIDPRN PRN PRN Reason: Nasal Congestion Sodium Chloride (Flush - Normal Saline) 10 ml IVF Q12HR [facility] Last Admin: 10/10/17 08:34 Dose: 10 ml Sodium Chloride (Flush - Normal Saline) 10 ml IVF PRN PRN PRN Reason: Saline Flush Zolpidem Tartrate (Ambien) 5 mg PO HSPRN PRN PRN Reason: Insomnia
[2017-10-10 15:55] VITALS: BP 137/87; TEMP 98.1
--- NOTE | 2017-10-10 19:50 | DIS ---
DATE OF ADMISSION: 10/06/2017 The patient is leaving against medical advice on 10/10/2017 PRIMARY CARE PHYSICIAN: Lisa Salazar PA-C DISCHARGE DIAGNOSES: 1. Bilateral pulmonary embolism. 2. Community-acquired pneumonia. 3. Right-sided pleural effusion. 4. Ground glass opacity on imaging of lung. HOSPITAL COURSE: Ms. Newman is a pleasant 32-year-old lady who was admitted to [facility] on 10/06/2017 for bilateral pulmonary emboli. Please refer to Eusebio's history and physical note dated 10/06/2017 for further information. She was seen by Pulmonology Service following admission. She was started on Lovenox and the plan was to discharge her home on apixaban or rivaroxaban. She was found to have a right-sided pleural effusion on chest x-ray done on . Pulmonology Service ordered right decubitus chest x-ray. She had the right decubitus chest x-ray on 10/09/2017, which showed moderate amount of free fluid layering within the dependent portion of the right hemithorax. The patient had a conflict with Pulmonary and Critical Care Medicine service and fired Pulmonary Service. Attempts were made to transfer her to other facilities for ongoing care, including possible drainage of the pleural effusion. These attempts were unsuccessful. On 10/10/2017, patient wished to leave against medical advice. She will follow up with her primary care provider for further management. I discussed the risks of leaving against medical advice, including worsening pleural effusion, worsening pneumonia, worsening pulmonary embolism and even . She is making an informed decision to leave against medical advice. However, she will need antibiotics until she sees her primary care provider. She also needs anticoagulation until she sees her primary care provider. Therefore, I am providing her with a prescription for levofloxacin to complete course for the pneumonia as well as apixaban to start for bilateral pulmonary embolism. Once she is seen by her primary care provider, her medications may need to be changed. Side effects of medications were discussed including but not limited to increased risk of bleeding and tendon rupture. Many thanks for allowing me to participate in your patient's care. Please feel free to contact me with any questions or concerns. She had a 2D echocardiogram during this hospitalization, which was unremarkable. She also had a lower extremity Doppler ultrasound, which did not reveal any DVT in either lower extremity. She is advised to stop smoking and to stop oral contraceptive use. She is also advised to use alternate forms of contraception and to stop apixaban if she were to become . DISCHARGE DESTINATION: Home. [facility]
--- NOTE | 2017-10-11 11:39 | EKG ---
Test Reason : Blood Pressure : / mmHG Vent. Rate : 099 BPM Atrial Rate : 099 BPM P-R Int : 148 ms QRS Dur : 068 ms QT Int : 368 ms P-R-T Axes : 065 042 033 degrees QTc Int : 472 ms Normal sinus rhythm Possible Left atrial enlargement Borderline ECG No ST elevation/ME Confirmed by RUBY ROSA DO ([id number]), city editor KEIRA DEGROOT ([id number]) on 10/11/2017 11:38:49 AM Referred By: Confirmed By:RUBY ROSA DO
[2017-10-14 06:16] LABS: Activated Protein C Resistance 1.8 ratio (.)
== END 2017-10-10 16:06 | disposition left against medical advice (07) | DRG 175 ==
LOC: ERS 08:30 → ERHOLD 10:24 → 2SE 12:26
PROVIDERS: ADMIT Internal Medicine; ATTEND Internal Medicine
DX: I26.99 Other pulmonary embolism without acute cor pulmonale (principal); J15.9 Unspecified bacterial pneumonia; J91.8 Pleural effusion in other conditions classified elsewhere; D72.829 Elevated white blood cell count, unspecified; F41.9 Anxiety disorder, unspecified; F32.9 Major depressive disorder, single episode, unspecified; M54.5 Low back pain; G89.29 Other chronic pain; M19.90 Unspecified osteoarthritis, unspecified site; Z85.41 Personal history of malignant neoplasm of cervix uteri; F17.210 Nicotine dependence, cigarettes, uncomplicated
CPT/HCPCS: 36415; 71045; 71046; 80053; 81001; 81240; 81241; 82565; 83090; 84484; 85014; 85018; 85025; 85048; 85049; 85240; 85300; 85303; 85305; 85307; 85379; 85598; 85610; 85730; 86147; 93005; 93306; 93970; 94640; 96374; 99406; A4216; J0692; J1650; J1956; J2270; J2920; J7050; J7506; J7620

== ENCOUNTER 2018-05-20 09:55 | Outpatient (CLI) | payer OTHER ==
--- NOTE | 2018-05-20 11:25 | RAD ---
THREE VIEWS OF CERVICAL SPINE: DATE: 05/20/2018. HISTORY: Neck pain and bilateral arm numbness. TECHNIQUE: Neutral, flexion, and extension lateral imaging of the cervical spine provided. The prevertebral sof t tissues appear within normal limits. There is mild disk space narrowing and mild anterior osteophy te formation at C5-6 and C6-7. No anterolisthesis or retrolisthesis is noted on the neutral, flexion or extension views. There is probable mild posterior osteophyte at C6-7. IMPRESSION: Mild cervical spine degenerative change as detailed above. POS: [facility]
== END 2018-05-20 09:56 | disposition home or self-care (01) ==
LOC: TBSIIMAG 09:55
PROVIDERS: ATTEND Surgery
DX: M47.22 Other spondylosis with radiculopathy, cervical region (principal)
CPT/HCPCS: 72040

== ENCOUNTER 2018-06-15 07:36 | Outpatient (CLI) | payer OTHER ==
--- NOTE | 2018-06-15 09:00 | MRI ---
MRI Cervical spine without contrast: HISTORY: Neck pain for several years radiates sporadically down bilateral arms. Bilateral hand numbness and he adaches. COMPARISON: None FINDINGS: The craniocervical junction is unremarkable. No significant cord signal abnormality. The paravertebral soft tissues demonstrate normal appearance and signal intensity. There is a subcentimeter rounded focus of increased T1 and T2 weighted signal intensity in the T3 derrick tebral body posteriorly likely related to small hemangioma. There is otherwise normal signal intensity demonstrated throughout the bone marrow. C1-2:No significant stenosis. C2-3:There is no disc bulge or disc herniation.. Central spinal canal and neural foramina are patent. C3-4:There is a broad-based disc osteophyte complex. This narrows the ventral subarachnoid space with out significant narrowing of the central spinal canal. The neural foramina are patent. C4-5:There is no disc bulge or disc herniation. Central spinal canal and neural foramina are patent. C5-6:There is a mild disc osteophyte complex which narrows the ventral subarachnoid space. This also results in mild left-sided neural foraminal narrowing. The right neural foramen is patent. C6-7: There is mild loss of intervertebral disc height. Broad-based disc osteophyte complex is presen t resulting in narrowing of the ventral subarachnoid space. There is mild encroachment on each neural foramen. C7-T1:Mild disc osteophyte complex present resulting in slight effacement of ventral subarachnoid spa ce. Neural foramina are patent. IMPRESSION: Mild multilevel degenerative changes in the cervical spine without high-grade central canal or neural foraminal narrowing.
--- NOTE | 2018-06-15 09:33 | MRI ---
MRI THORACIC SPINE WITHOUT CONTRAST: HISTORY: Compression of spinal cord. Mid back pain, x years. Pain sporadically radiates down both arms, hand s. Associated numbness. COMPARISON: None. TECHNIQUE: MRI of the thoracic spine is performed without intravenous Gadolinium administration. Multisequentia l, multiplanar imaging is performed. FINDINGS: Visualized mediastinum, lung parenchyma, and upper abdominal solid organs have a normal signal intens ity. There is appropriate T1 marrow signal intensity of the thoracic vertebrae. Vertebral body height is maintained. There is no fracture. There is intrinsic T1 and T2 hyperintensity at T3, T4, and T11 co mpatible with hemangiomas. The thoracic cord has a normal size and signal. No cord expansion or cord malacia. There does appea r to be subtle T2 hyperintensity along the anterior aspect of the cord starting at the T4-T5 disk spa ce extending inferiorly to the superior end plate of T6. This signal intensity is also suggested on the sagittal images. Findings may represent a syrinx. Postcontrast imaging is recommended to exclud e an underlying intramedullary lesion. Conus medullaris terminates at the inferior aspect of T12. From T1-T2 through T6-T7 and T8-T9 through T12-L1, there is no significant central canal stenosis. T7-T8: Mild loss of disk space height. Small left and right paracentral disk bulges with resultant minimal deformity of the ventral aspect of the right hemicord. Mild central canal stenosis is noted. IMPRESSION: 1. T2 hyperintensity involving the thoracic cord as described above. Findings may represent a syrin x. Postcontrast imaging is recommended to exclude an intramedullary lesion. 2. Degenerative disk disease at T7-T8. CODE T POS: [facility]
--- NOTE | 2018-06-15 09:47 | MRI ---
MRI Lumbar Spine Noncontrast: HISTORY: Lumbar radiculopathy. Patient has complained of low back pain for years with radiation pain into left leg. COMPARISON: CT lumbar spine obtained [facility] on 07/18/2016 FINDINGS: Conus medullaris is normal in morphology and terminates at the L1 level. There is incomplete imaging of an intrauterine gestation. The remainder of the visualized retroperito arnulfo structures demonstrate a normal MRI appearance. Normal signal intensity is demonstrated throughout the bone marrow. L1-2:There is no disc bulge or disc herniation. Central spinal canal and neural foramina are patent. L2-3:There is no disc bulge or disc herniation. Central spinal canal and neural foramina are patent. L3-4:There is no disc bulge or disc herniation. Central spinal canal and neural foramina are patent. L4-5:There is no disc bulge or disc herniation. Central spinal canal and neural foramina are patent. L5-S1:There is loss of intervertebral disc height. A mild broad-based disc osteophyte complex is pres ent. This was also seen on prior CT examination. This does encroach on the traversing bilateral S1 nerve roots but does not appear to contact either nerve root. The central spinal canal is patent. Kamaljit ateral neural foramina are patent. IMPRESSION: 1. Mild disc degenerative changes at the L5-S1 level. Central spinal canal and neural foramina are pa tent at all levels of the lumbar spine. 2. Incomplete imaging of an intrauterine gestation.
--- NOTE | 2018-06-15 10:09 | MRI ---
MRI Brain WO Con: 06/15/2018 12:00 AM CLINICAL HISTORY: Headache. COMPARISON: None. FINDINGS: Extra axial spaces: Normal in size and morphology for the patient's age. Acute infarction: None. Ventricular system: Normal in size and morphology for the patient's age. Basal cisterns: Normal. Cerebral parenchyma: Normal. Midline shift: None. Cerebellum: Normal. Brainstem: Normal. Paranasal sinuses:Clear IMPRESSION:No acute intracranial abnormality.
== END 2018-06-15 07:37 | disposition home or self-care (01) ==
LOC: BICMRI 07:36
PROVIDERS: ATTEND Surgery
DX: M54.16 Radiculopathy, lumbar region (principal); R51 Headache; G95.20 Unspecified cord compression; M51.37 Other intervertebral disc degeneration, lumbosacral region; M51.34 Other intervertebral disc degeneration, thoracic region; R93.7 Abnormal findings on diagnostic imaging of other parts of musculoskeletal system; M47.22 Other spondylosis with radiculopathy, cervical region
CPT/HCPCS: 70551; 72141; 72146; 72148

== ENCOUNTER 2018-07-04 23:32 | Observation (INO) | payer OTHER ==
[2018-07-05 00:05] VITALS: BMI 25.0
[2018-07-05] MEDS ORDERED: Calcium Gluc 4.6 MEQ/10 ML (100 MG/ML) SLOW IVP PRN (00:30)
[2018-07-05] MEDS ORDERED: Ondansetron PF 4 MG/2 ML Vial IVP PRN (00:30)
[2018-07-05] MEDS ORDERED: Promethazine HCl 25 MG/ML VIAL IM PRN (00:30)
--- NOTE | 2018-07-05 00:40 | PDOC.LDHP ---
Labor and Delivery H&P Allergies/Adverse Reactions: Allergies Allergy/AdvReac Type Severity Reaction Status Date / Time No Known Allergies Allergy Verified 07/05/18 00:07 - Plan -: PCP: Jie HPI: This is a 32 yo at 23.6 wks presenting for elevated bp at home. She states that her BP at home was 145/90 which prompted her to head into the ED for evaluation. She states she has a3/10 dull headache which feels like headaches she has had in the past. She denies N/V/D. She denies fevers, chills, or sweats. She had an eclamptic seizure at 28 weeks with her previous at 28 weeks and had to have an emergent c/s.d She affirms movement, denies cxns, ROM, bleeding/discharge. Denies SWAIN, visual changes, SOB, or swelling. History: OB hx: x2 term uncomplicated, 1 emergency c/s 2/2 eclamptic seizure, plans for TOLAC [employer] Hx: abnormal colposcopy x2, last colpo normal PMH: PE induced by control sep 2017 PSH: c/s x1 Meds: PNV Soc Hx: currently smoke about 1ppd, denies alcohol, denies drugs Fam Hx: denies downs, congenital defects REVIEW OF SYSTEMS: Gen: no fever, chills, or sweats Neuro: no numbness/tingling, no weakness, +headache Eyes: no visual changes ENT: no hearing changes, no sore throat, no runny nose Resp: no cough, no SOB, no wheeze Card: denies chest pain, no palpitations GI: no N/V/D, no abdominal pain : no dysuria, no hematuria MSK: no myalgias, no joint pain/stiffness Heme: no easy bruising/bleeding Skin: no rash, no erythema PHYSICAL EXAMINATION: General: NAD, alert and oriented x3 HEENT: PERRLA, EOMI, normal sclera, oropharynx without erythema or exudate Neck: Supple. Full ROM. Heart/Cardiovascular System: RRR, Cap refill < 3 seconds, no rub, no murmur Lungs/Respiratory System: clear to auscultation bilaterally. No increased work of breathing. Room air. Abdomen/Gastro-Intestinal System: no abdominal tenderness, normal bowel sounds, Gravid Extremities: Warm extremities. No cyanosis or edema. Neuro: No gross deficits appreciated. CN 2-12 grossly intact Psychiatry: Awake, Alert and cooperative with exam Skin: No lesions, rashes, or ulcers Musculoskeletal: Full ROM A/P: This is a 32 yo at 23.6 wks presenting for pre-e r/o # elevated bp, r/o pre-e - <140/90 thus far on L&D, elevated pressures recorded in ED - denies elevated BP outside of - will monitor bp for 24 hours - 24 hr urine protein - CBC, CMP WNL at ED - hx of eclamptic seizure at 28 weeks with last - will start asa ppx # Hx of PE attributed to OCPs - SCDs Addendum - Attending - Attending Attestation Date/Time: 07/05/18 0818 I personally evaluated the patient and discussed the management with Dr. Sarkar I agree with the History, Examination, Assessment and Plan documented above with any addition or exceptions noted below.
[2018-07-05] MEDS ORDERED: Lactated Ringer's 1,000 ML IV SCH (02:00)
--- NOTE | 2018-07-05 07:00 | PDOC.OBAPN ---
FMR OB AP PN: Sub - Interval History Hospital Day: 2 Chief Complaint: elevated BP at home Indentification: Interval History: No SWAIN, no elevated BPs since admission, no visual changes, bldg or cxns FMR OB AP PN: Obj - Maternal Vital signs: BP: 109/82 HR: 84 RR: 18 Tmax: 98.2 Pox: 98% on RA Wt: 72.57 FMR OB AP PN: Exam - Physical Exam General: NAD, awake, alert and oriented HEENT: normocephalic and atraumatic, MMM Neck: supple Heart: RRR, normal S1/S2, no murmurs/rubs/gallops, pulses present General: CTAB, no respiratory distress, good air movement, no wheezing Abdomen: soft, gravid, fundus(cm), non-tender Musculoskeletal: normal gait and station, pulses present, no misalignment/ asymmetry Neurological: cranial nerves II through XII intact, sensation to pain,touch and proprioception grossly normal Skin: no rash, good tugor, capillary refill <2 seconds FMR OB AP PN: A/P - Problem List (1) History of pre-eclampsia in prior , currently Current Visit: Yes Status: Acute Code(s): O09.299 - SUPRVSN OF PREG W POOR REPRODCTV OR OBSTET HISTORY, UNSP TRI (2) Elevated BP without diagnosis of hypertension Current Visit: Yes Status: Acute Code(s): R03.0 - ELEVATED BLOOD-PRESSURE READING, W/O DIAGNOSIS OF HTN Discussion: Date/Time: 07/05/1859 This is a 32 yo at 24.0 wks presenting for pre-e r/o # elevated bp, r/o pre-e - <140/90 thus far on L&D, no elevated pressures overnight, elevated pressures recorded in ED - denies elevated BP outside of - 24 hr urine protein in process - CBC, CMP WNL at ED - hx of eclamptic seizure at 28 weeks with last - will start asa ppx # Hx of PE attributed to OCPs - SCDs This H&P was discussed with Dr. Walsh Addendum - Attending - Attending Attestation Date/Time: 07/05/18 [id number] I personally evaluated the patient and discussed the management with Dr. Sarkar I agree with the History, Examination, Assessment and Plan documented above with any addition or exceptions noted below.
[2018-07-05] MEDS ORDERED: Aspirin 81 mg Enteric Coated Tablet PO SCH (09:00)
--- NOTE | 2018-07-05 10:32 | ULT ---
PRELIMINARY REPORT/[facility]/EMERGENCY AFTER HOURS PROCEDURE: EXAM: US , Limited EXAM DATE/TIME: 07/05/2018 2:21 AM CLINICAL HISTORY: 32 years old, female; Other: Lt sided pain, decels; Gestational age or lmp: 23w6d; TECHNIQUE: Imaging protocol: Real-time ultrasound of the maternal uterus with image documentation. Exam focused on the clinical indication. COMPARISON: No relevant prior studies available. FINDINGS: GESTATION: There is a single, live intrauterine gestation. Presentation: Breech. heart rate: 139 BPM. Placenta: Anterior. Previa: No Amniotic fluid volume: Normal (JEROME 10.8 cm) anatomy: Stomach: Normal Kidneys: Normal Bladder: Normal Spine: Normal Ventricles: Normal Cerebellum: Normal Biometry: Composite sonographic age: 23 weeks 2 days Estimated date of confinement: 10.30.18. Estimated weight: 618 grams Impression: Single, live intrauterine gestation without visible complication. Thank you for allowing us to participate in the care of your patient. Dictated and Authenticated by: Lupe Ching MD 07/05/2018 5:09 AM Central Time ([place] & [place]) FINAL REPORT EMERGENCY AFTER HOURS OB ULTRASOUND LIMITED: IMPRESSION: I agree with the preliminary report provided by Jasmyn. There is a single, live intrauterine gestation in breech presentation, with size and dates as above. POS: BH
[2018-07-05 14:59] VITALS: BP 122/78; TEMP 98.1
--- NOTE | 2018-07-05 15:02 | PDOC.EVN ---
Event Note - Event Note Event Note: HPI: This is a 32 yo at 23.6 wks presenting for elevated bp at home and general malaise since Friday. She denies N/V/D. She denies fevers, chills, or sweats. She had an eclamptic seizure at 28 weeks with her previous at 28 weeks and had to have an emergent c/s. She affirms movement, denies cxns, ROM, bleeding/discharge. Denies SWAIN, visual changes, SOB, or swelling. History: OB hx: x2 term uncomplicated, 1 emergency c/s after eclamptic seizure, plans for TOLAC [employer] Hx: abnormal colposcopy x2, last colpo normal PMH: PE induced by control sep 2017 PSH: c/s x1 Meds: PNV Soc Hx: currently smokes about 1ppd, denies alcohol, denies drugs (but previous THC and BENZO positive drug screen on record here) Fam Hx: denies downs, congenital defects REVIEW OF SYSTEMS: Gen: no fever, chills, or sweats Neuro: no numbness/tingling, no weakness, mild headache Eyes: no visual changes ENT: no hearing changes, no sore throat, no runny nose Resp: no cough, no SOB, no wheeze Card: denies chest pain, no palpitations GI: no N/V/D, no abdominal pain : no dysuria, no hematuria MSK: no myalgias, no joint pain/stiffness Heme: no easy bruising/bleeding Skin: no rash, no erythema PHYSICAL EXAMINATION: General: NAD, alert and oriented x3 HEENT: PERRLA, EOMI, normal sclera, oropharynx without erythema or exudate Neck: Supple. Full ROM. Heart/Cardiovascular System: RRR, Cap refill < 3 seconds, no rub, no murmur Lungs/Respiratory System: clear to auscultation bilaterally. No increased work of breathing. Room air. Abdomen/Gastro-Intestinal System: no abdominal tenderness, normal bowel sounds, Gravid Extremities: Warm extremities. No cyanosis or edema. Neuro: No gross deficits appreciated. CN 2-12 grossly intact Psychiatry: Awake, Alert and cooperative with exam Skin: No lesions, rashes, or ulcers Musculoskeletal: Full ROM Assesment: 1. 32 yo at 23.6 wks 2. Hx of Eclampsia 3. Heavy Tobacco and Caffein Use despite councelling 4. Previous positive drug screen. 5. Thus far, negative work up for pre-eclamsia with CBC, CMP all WNL at ED, and normal BPs with rest. Initial urine negative for protein. Plan: 1. 12 hour urine protein ordered - rather than 24 hour. 2. Protein to Creatinine ratio ordered 3. UDS ordered 4. If all values appear favorable, will DC to home with clinic F/U tomorrow.
[2018-07-05 16:23] LABS: Urine Total Volume 2275 mL (600-1600)
[2018-07-05 16:34] LABS: Amphetamine Not Detected (NotDetected); Barbiturates Screen Not Detected (NotDetected); Benzodiazepine Screen Not Detected (NotDetected); Cocaine Metabolite Screen Not Detected (NotDetected); Medtox Control Line Valid? VALID (VALID); Medtox Reader # READER 1; Methadone Not Detected (NotDetected); Methamphetamine Not Detected (NotDetected); Opiate Screen Not Detected (NotDetected); Oxycodone Screen Not Detected (NotDetected); Phencyclidine (PCP) Not Detected (NotDetected); THC/Cannabinoid Screen Not Detected (NotDetected); Tricyclic Screen Not Detected (NotDetected)
[2018-07-05 16:44] LABS: Protein, Urine Less than 10 mg/dL (1-14)
[2018-07-05 16:46] LABS: Creatinine, Urine 39.03 mg/dL (47-110); Protein, Urine Random Quant Less than 10 mg/dL (1-14)
== END 2018-07-05 17:22 | disposition home health service (06) ==
LOC: L&D/OP 23:32 → L&D 07-05 00:30
PROVIDERS: ADMIT Obstetrics & Gynecology; ATTEND Obstetrics & Gynecology
DX: O99.89 Other specified diseases and conditions complicating pregnancy, childbirth and the puerperium (principal); R03.0 Elevated blood-pressure reading, without diagnosis of hypertension; F17.290 Nicotine dependence, other tobacco product, uncomplicated; Z3A.23 23 weeks gestation of pregnancy
CPT/HCPCS: 76815; 80306; 82570; 84156; 96360; 96361; 99285; G0378

== ENCOUNTER 2018-07-14 17:20 | Observation (INO) | payer OTHER ==
[2018-07-14 18:02] VITALS: BMI 22.6
[2018-07-14] MEDS ORDERED: Zolpidem Tartrate 5 MG TAB PO PRN (18:26)
[2018-07-14] MEDS ORDERED: Ondansetron PF 4 MG/2 ML Vial IVP PRN (18:26)
[2018-07-14 18:55] LABS: Hemoglobin 11.5 g/dL (12.0-16.0); Mean Corpuscular HGB CONC 34.4 g/dL (32.0-36.0); Mean Corpuscular Hemoglobin 33.4 pg (27.0-31.0); Mean Corpuscular Volume 97.3 fL (78.0-98.0); Mean Platelet Volume 10.6 fL (7.4-10.4); Platelet Count 163 thou/uL (130-400); RBC Distribution Width 12.7 % (11.5-14.5); Red Blood Cell (RBC) Count 3.45 mill/uL (4.20-5.40); White Blood Cell (WBC) Count 14.1 thou/uL (4.8-10.8)
[2018-07-14 19:16] LABS: ALT (SGPT) 14 U/L (8-55); AST (SGOT) 13 U/L (5-34); Albumin 3.3 g/dL (3.5-5.0); Alkaline Phosphatase 100 U/L (40-150); Anion Gap 10 mmol/L (10-20); BUN (Urea Nitrogen) 7 mg/dL (7.0-18.7); Bilirubin, Total 0.3 mg/dL (0.2-1.2); Calc. Creatinine Clearance 159 mL/min (70-130); Carbon Dioxide 23 mmol/L (22-29); Chloride 106 mmol/L (98-107); Estimated GFR-MDRD Greater than 90; Glucose 71 mg/dL (70-105); Potassium 3.3 mmol/L (3.5-5.1); Protein, Total 6.3 g/dL (6.0-8.3); Sodium 136 mmol/L (136-145); Uric Acid 4.6 mg/dL (2.6-6.0)
--- NOTE | 2018-07-15 04:04 | HP ---
PRIMARY OB: Jared Ceron MD. CHIEF COMPLAINT: Elevated blood pressures. HISTORY OF PRESENT ILLNESS: The patient is a 32-year-old, G4, P3, female with an intrauterine at 25 weeks and a day, who presented to an outside emergency in [facility] after not feeling well and was noted to have elevated blood pressures in the 140s to 150s with proteinuria. Given the patient's history of preeclampsia at 28 weeks, resulting in emergency , the patient was transferred to Labor and Delivery for further evaluation. Of note, the patient was seen about a week ago for evaluation and had a negative workup. The patient reports that she has been having intermittent headaches that are mild in nature. She also denies feeling under the weather in general. She denies any recent illness, fever, fall, chest pain, shortness of breath, nausea, vomiting, diarrhea, constipation, hip problems, knee problems, muscle weakness, any new rashes, vaginal bleeding, leakage of fluid, urinary urgency. PAST MEDICAL HISTORY: Pulmonary embolism from 09/2017, also heterozygote for factor V Leiden. PAST SURGICAL HISTORY: One prior . MEDICATIONS: vitamins and Lovenox 40 mg daily. OB HISTORY: She has had 2 term deliveries, spontaneous vaginal deliveries, one emergency and desires trial of labor after with this . SOCIAL HISTORY: The patient reports that she smokes about a pack per day. Denies alcohol or drug use. OB LABS: Unavailable for dictation. REVIEW OF SYSTEMS: Per HPI PHYSICAL EXAMINATION: VITAL SIGNS: Blood pressures have been in the 140s to 150s with diastolic primarily in the 90s, respiratory rate 18, heart rate 70s, saturating 99% on room air, temperature 98.5. GENERAL: She appears to be in no acute distress. She is alert and oriented, cooperative and pleasant to interact with. HEAD: Normocephalic, atraumatic. LUNGS: Clear to auscultation bilaterally. HEART: Has regular rate and rhythm. heart tracing shows a baseline of a 25 week in the 140s with moderate long-term variability, appropriate for 25 weeks gestation. Tocometer showing no contractions. LABORATORY DATA: White count is 14.1, hemoglobin is 11.5, hematocrit 33.5, platelets of 163,000. Sodium 136, potassium 3.3, creatinine 0.58, AST 13, ALT 14. Urine protein is 1+. ASSESSMENT AND PLAN: The patient is a 32-year-old multiparous female with an intrauterine at 25 weeks, who presents for evaluation of preeclampsia. The patient has 1+ proteinuria, which has been a change from her previous evaluation. We will continue over the next 24 hours to collect a 24 hour urine protein. Otherwise, the patient's labs are within normal limits. Blood pressures are remaining in the mild range at this time. We will keep a close eye on her for worsening signs and symptoms. Dr. Ceron, her primary OB, will likely be resuming care tomorrow. Job ID: [id number]
[2018-07-15] MEDS ORDERED: Enoxaparin Sodium 40 MG/0.4 ML SYRINGE SC SCH (07:30)
[2018-07-15 19:55] LABS: Urine Total Volume 2675 mL (600-1600)
[2018-07-15 20:15] LABS: Protein - 24 Hr 856 mg/24 hr (Less than 300); Protein, Urine 32 mg/dL (1-14)
[2018-07-15] MEDS: Betamet Acet/Betamet Na Ph 30 MG/5 ML VIAL IM SCH (21:09)
[2018-07-15] MEDS: Enoxaparin Sodium 40 MG/0.4 ML SYRINGE SC SCH (21:15)
--- NOTE | 2018-07-16 19:48 | PDOC.EVN ---
Event Note - Event Note Event Note: HPI 32 yo at 25 and 1/7 weeks presents as a transfer from [facility] with concerns of 2+ protein and elevated BPs, as well as headaches and a general feeling of malaise. Patient has a prior hx of Eclampsia last pregnancay, but a negative work up for pre-eclamsia about a week ago (no protein at that time). The patient has also recently informed us of a PE hx in 2018, and has tested positive for Factor 5 Leiden, and was immediately placed on Lovenox 40mg SQ since.. REVIEW OF SYSTEMS: Gen: no fever, chills, or sweats Neuro: no numbness/tingling, no weakness, (+) intermittent headache Eyes: no visual changes ENT: no hearing changes, no sore throat, no runny nose Resp: no cough, no SOB, no wheeze Card: denies chest pain, no palpitations GI: no N/V/D, no abdominal pain : no dysuria, no hematuria, no vaginal DC MSK: no issues noted Heme: no easy bruising/bleeding Skin: no rash, no erythema PHYSICAL EXAMINATION: General: NAD, alert and oriented x3 HEENT: PERRLA, EOMI, normal sclera, oropharynx without erythema or exudate Neck: Supple. Full ROM. Heart/Cardiovascular System: RRR, Cap refill < 3 seconds, no rub, no murmur Lungs/Respiratory System: clear to auscultation bilaterally. No increased work of breathing. Room air. Abdomen/Gastro-Intestinal System: no abdominal tenderness, normal bowel sounds, Gravid Pelvic Exam: Deferred Extremeties: Warm extremities. No cyanosis or edema. Neuro: No gross deficits appreciated. CN 2-12 grossly intact Psychiatry: Awake, Alert and cooperative with exam Skin/ Integumentory: No lesions, rashes, or ulcers Musculoskeletal: Full ROM A/P: Assessment: 1. 32 yo at 25 and 1/7 wks with Chronic Hypertension with new dx of Superimposed Preeclamsia. 2. Chronic HTN 3. Hx of Eclamsia last 4. Tobacco Use. 5. Hx of THC/Benzo use during previous testing in old records (pt now denies, last UDS -neg) 6. Hx of Stat Primary 7. 24 hour urine protein >300 mg (c/w now with mild preeclamsia) Plan: 1. Admit for further in-patient monitoring 2. BMZ x 2 doses 3. NST q Shift 4. Lovenox 40mg sq 5. Repeat Preeclamsia labs in the next 72 hours.
[2018-07-16] MEDS: Betamet Acet/Betamet Na Ph 30 MG/5 ML VIAL IM SCH (21:49)
--- NOTE | 2018-07-16 21:53 | PDOC.EVN ---
Event Note - Event Note Event Note: HPI 32 yo at 25 and 2/7 weeks who presented to [facility] on 07/14/18, and was transferred to [place] with concerns of 2+ protein and elevated BPs, as well as headaches and a general feeling of malaise. Patient has a prior hx of Eclampsia last pregnancay, but a negative work up for pre-eclamsia about a week ago (no protein at that time). The patient has also recently informed us of a hx of PE in 2018 (with several months of p.o. anticoagulation), and has tested positive for Factor 5 Leiden this month, and was immediately placed on Lovenox 40mg SQ since. REVIEW OF SYSTEMS: Gen: no fever, chills, or sweats Neuro: no numbness/tingling, no weakness, (+) intermittent headache Eyes: no visual changes ENT: no hearing changes, no sore throat, no runny nose Resp: no cough, no SOB, no wheeze Card: denies chest pain, no palpitations GI: no N/V/D, no abdominal pain : no dysuria, no hematuria, no vaginal DC MSK: no issues noted Heme: no easy bruising/bleeding Skin: no rash, no erythema PHYSICAL EXAMINATION: General: NAD, alert and oriented x3 HEENT: PERRLA, EOMI, normal sclera, oropharynx without erythema or exudate Neck: Supple. Full ROM. Heart/Cardiovascular System: RRR, Cap refill < 3 seconds, no rub, no murmur Lungs/Respiratory System: clear to auscultation bilaterally. No increased work of breathing. Room air. Abdomen/Gastro-Intestinal System: no abdominal tenderness, normal bowel sounds, Gravid Pelvic Exam: Deferred Extremeties: Warm extremities. No cyanosis or edema. Neuro: No gross deficits appreciated. CN 2-12 grossly intact Psychiatry: Awake, Alert and cooperative with exam Skin/ Integumentory: No lesions, rashes, or ulcers Musculoskeletal: Full ROM A/P: Assessment: 1. 32 yo at 25 and 2/7 wks with a new dx of Preeclamsia. 2. Gestational HTN 3. Hx of Eclamsia last 4. Tobacco Use. 5. Hx of THC/Benzo use during previous testing in old records (pt now denies, last UDS -neg) 6. Hx of Stat Primary 7. 24 hour urine protein >300 mg (c/w now with mild preeclamsia) Plan: 1. Admit for further in-patient monitoring 2. BMZ x 2 doses 3. NST q Shift 4. Lovenox 40mg sq 5. Repeat Preeclampsia labs in am 6. NST q shift 7. Ultrasound in am.
[2018-07-16] MEDS: Enoxaparin Sodium 40 MG/0.4 ML SYRINGE SC SCH (21:56)
[2018-07-17 04:54] LABS: Creatinine, Urine 60.45 mg/dL (47-110)
--- NOTE | 2018-07-17 07:42 | ULT ---
BIOPHYSICAL PROFILE, LIMITED ULTRASOUND: CLINICAL HISTORY: 25-week gestation, preeclampsia. FINDINGS: Biophysical profile score for movement is 2, tone 2, breathing movements 2, amnioti c fluid volume 2. Total biophysical profile score is 8/8. Fetus is demonstrated in breech position with cardiac activity documented at 144 b.p.m. Placenta is located anteriorly. The JEROME measur es 9.6 cm. The region of the cervix is not visualized for comment. IMPRESSION: Biophysical profile score 8/8. POS: EDU
[2018-07-17 07:46] LABS: #Lymphocytes 2.1 thou/uL (1.20-3.40); #Monocytes 0.5 thou/uL (0.11-0.59); #Neutrophils 16.2 thou/uL (1.40-6.50); %Basophils 0.2 % (0.0-1.0); %Eosinophils 0.2 % (0.0-10.0); %Lymphocytes 11.2 % (21.0-51.0); %Monocytes 2.9 % (0.0-10.0); %Neutrophils 85.5 % (42.0-75.0); Hemoglobin 11.8 g/dL (12.0-16.0); Mean Corpuscular HGB CONC 34.9 g/dL (32.0-36.0); Mean Corpuscular Hemoglobin 34.1 pg (27.0-31.0); Mean Corpuscular Volume 97.6 fL (78.0-98.0); Mean Platelet Volume 10.8 fL (7.4-10.4); Platelet Count 164 thou/uL (130-400); RBC Distribution Width 13.2 % (11.5-14.5); Red Blood Cell (RBC) Count 3.47 mill/uL (4.20-5.40)
--- NOTE | 2018-07-17 08:00 | ULT ---
LIMITED OB ULTRASOUND: HISTORY: growth FINDINGS: A single live intrauterine gestation is seen with measurements corresponding to an estimated gestatio nal age of 24 weeks 5 days and DARSHAN at 11/01/2018. The estimated weight measures 737 g or 10 ounces. This corresponds to the 14th percentile by Hadlock criteria. biometry: BPD 6.07 cm, 24 weeks 5 days HC 22.43 cm, 24 weeks 3 days AC 20.59 cm, 25 weeks 1 day FL 4.39 cm, 24 weeks 3 days heart rate measures 132 bpm. JEROME is 7.3. Placenta is anteriorly located without evidence of carrie centa previa. presentation is breech. IMPRESSION: 1. Single live IUP of 24 weeks 5 days estimated gestational age and DARSHAN at 11/01/2018. 2. Oligohydramnios. Transcribed Date/Time: 07/17/2018 8:10 AM
[2018-07-17 08:05] LABS: ALT (SGPT) 10 U/L (8-55); AST (SGOT) 11 U/L (5-34); Albumin 3.5 g/dL (3.5-5.0); Alkaline Phosphatase 98 U/L (40-150); Anion Gap 15 mmol/L (10-20); BUN (Urea Nitrogen) 13 mg/dL (7.0-18.7); Bilirubin, Total Less than 0.2 mg/dL (0.2-1.2); Calc. Creatinine Clearance 138 mL/min (70-130); Calcium 9.1 mg/dL (7.8-10.44); Carbon Dioxide 21 mmol/L (22-29); Chloride 105 mmol/L (98-107); Estimated GFR-MDRD Greater than 90; Globulin 2.9 g/dL (2.4-3.5); Glucose 123 mg/dL (70-105); Protein, Total 6.4 g/dL (6.0-8.3); Sodium 137 mmol/L (136-145)
[2018-07-17 10:59] VITALS: BP 128/75; TEMP 97.9
--- NOTE | 2018-07-17 16:03 | PDOC.EVN ---
Event Note - Event Note Event Note: HPI 32 yo at 25 and 4/7 weeks, with EDC of 10/26/18, who presented to [facility] ER on 07/14/18, and was transferred to [facility] in [place], [place] with concerns of 2+ protein and elevated BPs, as well as headaches and a general feeling of malaise. Patient has a prior hx of Eclampsia last pregnancay around 28 weeks where she was found seizing in her sleep. Fabian had a negative work up for pre-eclamsia about 1o days ago (no protein at that time). The patient has also recently informed us of a hx of PE in 2018 (with several months of p.o. anticoagulation) , and has tested positive for Factor 5 Leiden this month, and was immediately placed on Lovenox 40mg SQ since. Today, Urine Protein to Creatinine ratio is 2.11. CMP and CBC are WNL (WBC elevated due to BMZ most likely at 19). BMZ on 07/15/18 and 07/16/18. No magnesium sulfate at this time. 24-hour urine protein on 07/15/18 was elevated on 07/15/18 at 310 mg. Ultrasound today shoews breech fetus at 737g (14th percentile) and JEROME at 7.3 cm noted as oligohydramnios. REVIEW OF SYSTEMS: Gen: no fever, chills, or sweats Neuro: no numbness/tingling, no weakness, (+) intermittent headache, minimal at the momentum. Eyes: no visual changes ENT: no hearing changes, no sore throat, no runny nose Resp: no cough, no SOB, no wheeze Card: denies chest pain, no palpitations GI: no N/V/D, no abdominal pain : no dysuria, no hematuria, no vaginal DC MSK: no issues noted Heme: no easy bruising/bleeding Skin: no rash, no erythema PHYSICAL EXAMINATION: General: NAD, alert and oriented x3 HEENT: PERRLA, EOMI, normal sclera, oropharynx without erythema or exudate Neck: Supple. Full ROM. Heart/Cardiovascular System: RRR, Cap refill < 3 seconds, no rub, no murmur Lungs/Respiratory System: clear to auscultation bilaterally. No increased work of breathing. Room air. Abdomen/Gastro-Intestinal System: no abdominal tenderness, normal bowel sounds, Gravid Pelvic Exam: Deferred Extremeties: Warm extremities. No cyanosis or edema. Neuro: No gross deficits appreciated. CN 2-12 grossly intact Psychiatry: Awake, Alert and cooperative with exam Skin/ Integumentory: No lesions, rashes, or ulcers Musculoskeletal: Full ROM A/P: Assessment: 1. 32 yo at 25 and 4/7 wks with a dx of Preeclamsia. 2. Hx of Eclamsia last at 28 weeks 3. Tobacco Use. 4. Hx of THC/Benzo use during previous testing in old records (pt now denies, last UDS -neg) 5. Hx of Stat Primary at 28 weeks last . 6. 24 hour urine protein >300 mg and (c/w preeclamsia) Plan: 1. Due to our NICU being at capacity, and signs of worsening preeclamsia, we have called the transfer center for transfer to a higher level of care hospital. 2. NST q Shift 3. Lovenox 40mg sq 4. NST q shift
== END 2018-07-17 19:20 | disposition left against medical advice (07) ==
LOC: L&D/OP 17:20 → L&D 07-15 04:27 → INTOOBSV 07-15 04:27 → 3SW 07-15 22:42
PROVIDERS: ADMIT Obstetrics & Gynecology; ATTEND Obstetrics & Gynecology
DX: O14.92 Unspecified pre-eclampsia, second trimester (principal); O99.332 Smoking (tobacco) complicating pregnancy, second trimester; F17.210 Nicotine dependence, cigarettes, uncomplicated; O99.112 Other diseases of the blood and blood-forming organs and certain disorders involving the immune mechanism complicating pregnancy, second trimester; D68.2 Hereditary deficiency of other clotting factors; Z3A.25 25 weeks gestation of pregnancy; Z86.711 Personal history of pulmonary embolism; Z79.01 Long term (current) use of anticoagulants
CPT/HCPCS: 36415; 59025; 76815; 76819; 80053; 81003; 82570; 84156; 84550; 85025; 85027; 86850; 86900; 86901; 96372; 99285; G0378; J0702; J1650

== ENCOUNTER 2018-07-19 11:54 | Day surgery (SDC) | payer OTHER ==
[2018-07-19] MEDS ORDERED: Magnesium Sulfate 20 gm/500 ml 20 GM/500 ML BAG ONE (12:15)
[2018-07-19] MEDS ORDERED: Calcium Gluc 4.6 MEQ/10 ML (100 MG/ML) SLOW IVP PRN (12:16)
[2018-07-19] MEDS ORDERED: Labetalol HCl 100 MG/20 ML VIAL SLOW IVP PRN (12:17)
[2018-07-19 12:23] VITALS: TEMP 99.1; BMI 24.3
[2018-07-19] MEDS ORDERED: Magnesium Sulfate 20 GM/WATER 500 ML BAG IVPB SCH (12:30)
[2018-07-19] MEDS ORDERED: Magnesium Sulfate 20 gm/500 ml 20 GM/500 ML BAG IVPB SCH (12:30)
[2018-07-19] MEDS ORDERED: Lactated Ringer's 1,000 ML IV SCH (12:30)
[2018-07-19 12:44] LABS: Hemoglobin 12.2 g/dL (12.0-16.0); Mean Corpuscular Hemoglobin 34.3 pg (27.0-31.0); Mean Corpuscular Volume 97.9 fL (78.0-98.0); Mean Platelet Volume 10.8 fL (7.4-10.4); Platelet Count 159 thou/uL (130-400); RBC Distribution Width 13.1 % (11.5-14.5); Red Blood Cell (RBC) Count 3.55 mill/uL (4.20-5.40); White Blood Cell (WBC) Count 18.2 thou/uL (4.8-10.8)
[2018-07-19 13:06] LABS: ALT (SGPT) 36 U/L (8-55); AST (SGOT) 31 U/L (5-34); Albumin 3.4 g/dL (3.5-5.0); Alkaline Phosphatase 101 U/L (40-150); Anion Gap 14 mmol/L (10-20); BUN (Urea Nitrogen) 11 mg/dL (7.0-18.7); Bilirubin, Total 0.4 mg/dL (0.2-1.2); Calc. Creatinine Clearance 139 mL/min (70-130); Calcium 8.9 mg/dL (7.8-10.44); Carbon Dioxide 22 mmol/L (22-29); Chloride 105 mmol/L (98-107); Estimated GFR-MDRD Greater than 90; Globulin 2.6 g/dL (2.4-3.5); Glucose 76 mg/dL (70-105); Potassium 3.8 mmol/L (3.5-5.1); Sodium 137 mmol/L (136-145)
[2018-07-19] MEDS ORDERED: Labetalol 100 MG TAB PO SCH (13:15)
[2018-07-19 13:30] VITALS: BP 164/96
[2018-07-19] MEDS ORDERED: Labetalol HCl 100 MG/20 ML VIAL SLOW IVP SCH (13:30)
[2018-07-19] MEDS ORDERED: ALPRAZolam 0.25 MG TAB PO SCH (13:45)
[2018-07-19] MEDS ORDERED: hydrOXYzine 25 MG/ML VIAL IM SCH (13:45)
[2018-07-19] MEDS ORDERED: Ondansetron PF 4 MG/2 ML Vial IVP SCH (14:00)
[2018-07-19] MEDS ORDERED: Ondansetron PF 4 MG/2 ML Vial ONE (14:01)
[2018-07-19 14:11] LABS: Amphetamine Not Detected (NotDetected); Barbiturates Screen Not Detected (NotDetected); Benzodiazepine Screen Not Detected (NotDetected); Cocaine Metabolite Screen Not Detected (NotDetected); Medtox Control Line Valid? VALID (VALID); Medtox Reader # READER 4; Methadone Not Detected (NotDetected); Methamphetamine Not Detected (NotDetected); Opiate Screen Not Detected (NotDetected); Oxycodone Screen Not Detected (NotDetected); Phencyclidine (PCP) Not Detected (NotDetected); THC/Cannabinoid Screen Not Detected (NotDetected); Tricyclic Screen Not Detected (NotDetected)
[2018-07-19] MEDS ORDERED: hydrALAZINE 20 MG/ML VIAL ONE (14:43)
--- NOTE | 2018-07-19 14:53 | PRG ---
DATE OF SERVICE: 07/19/2018 PRIMARY OB: Dr. Jared Ceron. CHIEF COMPLAINT: Elevated blood pressures. HISTORY OF PRESENT ILLNESS: The patient is a 32-year-old, G4, P3, female with an intrauterine at 25 weeks and 6 days, who is re-presenting to the hospital after transfer on Friday to a facility in [place] for elevated blood pressures. The patient reports blood pressures at home were in the 170 systolic and is worried about her overall health and health of her baby given her history of 28-week eclampsia with delivery. The patient after presenting to Labor and Delivery was noted to have an initial blood pressures were sever with the highest 204/111 responded quickly to 20 mg of IV labetalol. The patient denies any headaches, shortness of breath. She reports that she just feels weird and cannot explain the symptoms. She denies any uterine contractions. She denies any vaginal bleeding or leakage of fluid, any falls or trauma. PAST MEDICAL HISTORY: The patient has a history of pulmonary embolism in September 2017 and is currently on prophylactic dose of Lovenox 40 mg daily. Last dose of Lovenox was the night before last she withheld herself to Lovenox last night. PAST SURGICAL HISTORY: She has had 1 prior . MEDICATIONS: vitamins and Lovenox 40 mg daily. OB HISTORY: She has had 2 term deliveries, spontaneous vaginal deliveries, 1 emergency at 28 weeks for eclampsia. SOCIAL HISTORY: The patient smokes about 1 pack per day. Denies drug or alcohol use. OB LABS: Unavailable for dictation. REVIEW OF SYSTEMS: Per history of present illness. PHYSICAL EXAMINATION: VITAL SIGNS: Again, blood pressure on arrival was 204/111, heart rate of 69, saturating 96% on room air, respiratory rate 18. Most recent blood pressure is 156/81, heart rate of 78, saturating 98% on room air, respiratory rate 18. GENERAL: She appears to be in no acute distress. She is alert, oriented, cooperative, and pleasant to interact with. HEAD: Normocephalic, atraumatic. LUNGS: Clear to auscultation bilaterally. HEART: Regular rate and rhythm. ABDOMEN: Gravid and soft. EXTREMITIES: Nontender, nonedematous. There are no DTRs on examination elicited and no clonus. heart tracing shows the fetus in the 140s with moderate long-term variability. LABORATORY AND DIAGNOSTIC DATA: White count is 18.2, hemoglobin is 12.2, hematocrit is 34.8, platelets of 159,000. Sodium 137, potassium 3.8, chloride 105, BUN 11, creatinine 0.65, AST of 31, ALT of 36, calcium of 8.9, glucose of 76. labs from 06/15 24hr urine protein >800mg urine protein dip 2+ ultrasound performed on 07/17/2018 demonstrated diminished JEROME of 7.3 anterior placenta without evidence of previa and fetus in breech presentation. Fetus in the 14th percentile for growth. fetus with baseline 130s min-mod variability, no decels ASSESSMENT AND PLAN: The patient is a 32-year-old female with a history of eclampsia in the early third trimester, late second trimester at 28 weeks with now showing signs of preeclampsia once again with severe features by blood pressure. The patient had a 24-hour urine collection of 856 mg over 24-hour collection on 07/15. Given gestational age and the patient's extreme high risk for early delivery and the fact of a closed NICU, transfer to [facility] has been initiated. The transfer has been accepted by [facility], Dr. Fernández. The patient will be transported by ambulance, on magnesium. She has had a 4 g loading dose and will continue 2 g an hour. The patient did receive steroids at her last hospitalization 4 or 5 days ago and we will be treating the patient accordingly for blood pressure management prior to transfer. Addendum 1500 PT began reports chest discomfort ekg wnl troponin and ck - wnl Pt also has required labetalol 40mg iv and hydralazine 5mg IV for repeated elevated BP Given pt over anxiety and apparent level of emotional stress from the situation pt was given xanax 0.25 po and hydroxyzine 25 mg IV which has helped. 1530 Will transfer the patient now Job ID: [id number] [facility]
[2018-07-19] MEDS ORDERED: hydrALAZINE 20 MG/ML VIAL SLOW IVP SCH (15:00)
[2018-07-19 15:28] LABS: CKMB 0.5 ng/mL (0-6.6); Troponin I Less than 0.010 ng/mL (< 0.028)
--- NOTE | 2018-07-21 16:47 | EKG ---
Test Reason : Blood Pressure : / mmHG Vent. Rate : 078 BPM Atrial Rate : 078 BPM P-R Int : 162 ms QRS Dur : 082 ms QT Int : 442 ms P-R-T Axes : 082 087 062 degrees QTc Int : 503 ms Normal sinus rhythm Possible Lateral infarct , age undetermined Prolonged QT Abnormal ECG When compared with ECG of 06-OCT-2017 09:01, Borderline criteria for Lateral infarct are now Present ST now depressed in Lateral leads Confirmed by DR. Vince SCHMID ([id number]) on 07/21/2018 4:47:01 PM Referred By: RANDELL Confirmed By:DR. Vince SCHMID
== END 2018-07-19 15:54 | disposition short-term general hospital (02) ==
LOC: L&D/OP 11:54
PROVIDERS: ATTEND Obstetrics & Gynecology
DX: O99.89 Other specified diseases and conditions complicating pregnancy, childbirth and the puerperium (principal); R03.0 Elevated blood-pressure reading, without diagnosis of hypertension; R07.89 Other chest pain; O12.12 Gestational proteinuria, second trimester; O99.332 Smoking (tobacco) complicating pregnancy, second trimester; F17.210 Nicotine dependence, cigarettes, uncomplicated; O32.1XX0 Maternal care for breech presentation, not applicable or unspecified; Z86.711 Personal history of pulmonary embolism; Z79.899 Other long term (current) drug therapy; Z3A.25 25 weeks gestation of pregnancy
CPT/HCPCS: 36415; 51702; 80053; 80306; 81003; 82553; 84484; 85027; 85384; 93005; 93010; 96365; 96366; 96372; 96375; 99285; J0360; J2405; J3410; J3475